=== PATIENT | female | born 1930 | race Caucasian/White ===

== ENCOUNTER 2017-02-27 12:34 | Emergency (ER) | payer MEDICARE ==
[2017-02-27 13:13] VITALS: BP 139/65
--- NOTE | 2017-02-27 14:33 | EDM.PDOC ---
ED HPI GENERAL MEDICAL PROBLEM - General Chief Complaint: Head Injury Stated Complaint: INJURY FACE/KNEES FEEL AT [place] Time Seen by Provider: 02/27/17 14:26 Source of Information: Reports: Patient History Limitations: Reports: No Limitations - History of Present Illness INITIAL COMMENTS - FREE TEXT/NARRATIVE: This 87 yo female patient was brought to the ED due to a ground level fall. The patient reports she was walking out of a restaurant and missed a step. The patient reports she fell directly on her face with pain to her forehead, upper nose and left knee. The patient does not think there was a loss of consciousness. Onset: Today Onset Date: 02/27/17 Duration: Constant Location: Reports: Head, Face, Lower Extremity, Left Quality: Reports: Ache, Dull Severity: Moderate Improves with: Reports: None Worsens with: Reports: None Context: Reports: Trauma (GLF) - Related Data Allergies Allergy/AdvReac Type Severity Reaction Status Date / Time promethazine Allergy Cannot Verified 11/08/14 06:07 Remember Sulfa (Sulfonamide Allergy Cannot Verified 11/08/14 06:07 Antibiotics) Remember Home Meds: Home Meds Carboxymethylcellulos/Glycerin [Refresh Optive] 1 drop EYEBOTH ASDIRECTED PRN [History] Cyanocobalamin (Vitamin B-12) [Cyanocobalamin Injection] 1,000 mcg INJECT .[id number] 11/01/14 [History] Levothyroxine Sodium [Synthroid] 1 tab PO DAILY 11/01/14 [History] Lutein/Min/Vit C/Vit E Acetate [Ocuvite Lutein] 1 cap PO DAILY 11/01/14 [History ] Metoprolol Tartrate [Lopressor] 1 tab PO BID 11/01/14 [History] Simvastatin [Simvastatin] 1 tab PO BEDTIME 11/01/14 [History] Triamterene/Hydrochlorothiazid [Dyazide 37.5-25] 1 tab PO DAILY 11/01/14 [ History] Past Medical History HEENT History: Reports: Macular Degeneration Cardiovascular History: Reports: High Cholesterol, Hypertension Musculoskeletal History: Reports: Arthritis Psychiatric History: Reports: None Endocrine/Metabolic History: Reports: Hypothyroidism - Past Surgical History HEENT Surgical History: Reports: Cataract Surgery GI Surgical History: Reports: Appendectomy Social & Family History - Family History Family Medical History: Noncontributory - Tobacco Use Smoking Status *Q: Never Smoker - Caffeine Use Caffeine Use: Reports: Coffee, Soda, Tea - Alcohol Use Days Per Week of Alcohol Use: 0 - Recreational Drug Use Recreational Drug Use: No ED ROS GENERAL - Review of Systems Review Of Systems: ROS reveals no pertinent complaints other than HPI. ED EXAM, HEAD INJURY - Physical Exam Exam: See Below Exam Limited By: No Limitations General Appearance: Alert, WD/WN, No Apparent Distress, Thin Head: Facial Abrasions (left forehead, upper nose) Nexus Criteria: No: Posterior, Midline Cervical Tenderness, Evidence of Intoxication, Altered Level of Consciousness, Focal Neurological Deficit, Painful Distraction Injuries Eyes: Bilateral Eye: EOMI, Normal Inspection, PERRL Ears: Normal External Exam, Normal Canal, Hearing Grossly Normal, Normal TMs Nose: Normal Mucousa, No Blood, Other (abrasion to upper nose from glasses) Throat/Mouth: Normal Inspection, Normal Lips, Normal Teeth, Normal Gums, Normal Oropharynx, Normal Voice, No Airway Compromise Neck: Non-Tender, Full Range of Motion, Normal Alignment, Normal Inspection Respiratory: No Respiratory Distress, Lungs Clear, Normal Breath Sounds, No Accessory Muscle Use, Chest Non-Tender Cardiovascular: Normal Peripheral Pulses, Regular Rate, Rhythm, No Edema, No Gallop, No JVD, No Murmur, No Rub GI/Abdominal Exam: Normal Bowel Sounds, Soft, Non-Tender, No Organomegaly, No Distention, No Abnormal Bruit, No Mass (Female) Exam: Deferred Rectal (Female) Exam: Deferred Back Exam: Full Range of Motion, Normal Inspection, NT Extremities: Leg Pain (left anteriorn knee pain) 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 As Tested, No Motor/Sensory Deficits, Alert, Normal Mood/Affect, Oriented x 3 Skin: Normal Color, Warm/Dry - [place] Coma Score Best Eye Response (Rachel): (4) Open Spontaneously Best Verbal Response (Rachel): (5) Oriented Best Motor Response (Rachel): (6) Obeys Commands Rachel Total: 15 Course - Vital Signs Last Recorded V/S: Last Vital Signs Temp 36.6 C 02/27/17 13:12 Pulse 64 02/27/17 13:12 Resp 14 02/27/17 13:12 BP 139/65 02/27/17 13:12 Pulse Ox 98 02/27/17 13:12 - Orders/Labs/Meds Orders: Active Orders 24 hr Category Date Time Status Knee 3V Lt [CR] Urgent Exams 02/27/17 14:30 Taken Max Facial Sinus wo Cont [CT] Urgent Exams 02/27/17 14:30 Taken Departure - Departure Time of Disposition: 15:28 Disposition: Home, Self-Care 01 Condition: Fair Clinical Impression: Abrasion, nose w/o infection Abrasion of forehead Qualifiers: Encounter type: initial encounter Qualified Code(s): S00.81XA - Abrasion of other part of head, initial encounter Contusion of left knee Qualifiers: Encounter type: initial encounter Qualified Code(s): S80.02XA - Contusion of left knee, initial encounter - Discharge Information Instructions: Facial or Scalp Contusion, [id number], Contusion, [id number] Forms: ED Department Discharge Care Plan Goals: The patient and family were advised of the examination, x-ray and CT results during the visit. The patient was encouraged to rest and ice the affected areas. If the patient has any additional symptoms or concerns, the patient should follow-up with her primary care facility or return to the emergency department. - My Orders Last 24 Hours: My Active Orders 02/27/17 14:30 Knee 3V Lt [CR] Urgent Max Facial Sinus wo Cont [CT] Urgent - Assessment/Plan Last 24 Hours: My Active Orders 02/27/17 14:30 Knee 3V Lt [CR] Urgent Max Facial Sinus wo Cont [CT] Urgent
== END 2017-02-27 15:48 | disposition home or self-care (01) ==
LOC: DL.ED 12:34
DX: S80.02XA Contusion of left knee, initial encounter (principal); S00.81XA Abrasion of other part of head, initial encounter; S00.31XA Abrasion of nose, initial encounter; I10 Essential (primary) hypertension; E78.00 Pure hypercholesterolemia, unspecified; M19.90 Unspecified osteoarthritis, unspecified site; E03.9 Hypothyroidism, unspecified; Z79.899 Other long term (current) drug therapy; Z88.2 Allergy status to sulfonamides; Z88.8 Allergy status to other drugs, medicaments and biological substances; Z98.49 Cataract extraction status, unspecified eye; Z90.49 Acquired absence of other specified parts of digestive tract; W01.0XXA Fall on same level from slipping, tripping and stumbling without subsequent striking against object, initial encounter; Y92.511 Restaurant or cafe as the place of occurrence of the external cause
CPT/HCPCS: 70486; 73562-LT; 99284

== ENCOUNTER 2018-04-04 11:28 | Emergency (ER) | payer MEDICARE ==
[2018-04-04 11:34] VITALS: BP 158/55
--- NOTE | 2018-04-04 12:04 | EDM.PDOC ---
Scribed by Saray Mitchell 04/04/18 1200 for Alexandr Raygoza MD ED HPI GENERAL MEDICAL PROBLEM - General Chief Complaint: Lower Extremity Injury/Pain Stated Complaint: [id number] HURT LEFT LEG FELL LAST WEEKEND AT HOME Time Seen by Provider: 04/04/18 11:43 Source of Information: Reports: Patient, Family, RN, RN Notes Reviewed History Limitations: Reports: No Limitations - History of Present Illness INITIAL COMMENTS - FREE TEXT/NARRATIVE: Pt presented to ER from home by POV with pt's granddaughter very worried because she found out the pt fell at home 8 days ago. Pt states that she has a tender bruise on the left thigh, but has been walking and taking care of herself "just fine" since the fall. Pt states that she was on the lowest rung of a step ladder in her basement cleaning the windows, and she tripped stepping off the ladder to the floor. She hit the left thigh on something but isn't sure what. She admits to bumping her head on the floor, but denies LOC, neck pain, N/ V, or drowsiness. She denies any other injury. She has not sought medical evaluation of her injuries prior to now. 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 Treatments Left Leg Pain Score (Numeric/FACES): 7 - Related Data Allergies Allergy/AdvReac Type Severity Reaction Status Date / Time promethazine Allergy Cannot Verified 04/04/18 11:34 Remember Sulfa (Sulfonamide Allergy Cannot Verified 04/04/18 11:34 Antibiotics) Remember Home Meds: Home Meds Carboxymethylcellulos/Glycerin [Refresh Optive] 1 drop EYEBOTH ASDIRECTED PRN [History] Cyanocobalamin (Vitamin B-12) [Cyanocobalamin Injection] 1,000 mcg INJECT .[id number] 11/01/14 [History] Levothyroxine Sodium [Synthroid] 1 tab PO DAILY 11/01/14 [History] Lutein/Min/Vit C/Vit E Acetate [Ocuvite Lutein] 1 cap PO DAILY 11/01/14 [History ] Metoprolol Tartrate [Lopressor] 1 tab PO BID 11/01/14 [History] Simvastatin 1 tab PO BEDTIME 11/01/14 [History] Triamterene/Hydrochlorothiazid [Dyazide 37.5-25] 1 tab PO DAILY 11/01/14 [ History] Aspirin [Ecotrin] 81 mg PO DAILY 04/04/18 [History] Donepezil HCl 5 mg PO ASDIRECTED 04/04/18 [History] Past Medical History HEENT History: Reports: Macular Degeneration Cardiovascular History: Reports: High Cholesterol, Hypertension Musculoskeletal History: Reports: Arthritis Neurological History: Reports: Other (See Below) Other Neuro History: forgetfulness Psychiatric History: Reports: None Endocrine/Metabolic History: Reports: Hypothyroidism Hematologic History: Reports: B12 Deficiency - Past Surgical History HEENT Surgical History: Reports: Cataract Surgery GI Surgical History: Reports: Appendectomy Social & Family History - Family History Family Medical History: Noncontributory - Tobacco Use Smoking Status *Q: Never Smoker Second Hand Smoke Exposure: No - Caffeine Use Caffeine Use: Reports: Coffee, Soda, Tea - Recreational Drug Use Recreational Drug Use: No - Living Situation & Occupation Living situation: Reports: , Alone Occupation: Retired Review of Systems - Review of Systems Review Of Systems: ROS reveals no pertinent complaints other than HPI. ED EXAM, GENERAL - Physical Exam Exam: See Below Exam Limited By: No Limitations General Appearance: Alert, WD/WN, No Apparent Distress Eye Exam: Bilateral Eye: EOMI, Normal Inspection, PERRL Ears: Normal External Exam, Normal Canal, Hearing Grossly Normal, Normal TMs Nose: Normal Inspection, Normal Mucosa, No Blood Throat/Mouth: Normal Inspection, Normal Lips, Normal Teeth, Normal Gums, Normal Oropharynx, Normal Voice, No Airway Compromise Head: Atraumatic, Normocephalic Neck: Normal Inspection, Supple, Non-Tender, Full Range of Motion Respiratory/Chest: No Respiratory Distress, Lungs Clear, Normal Breath Sounds, No Accessory Muscle Use, Chest Non-Tender Cardiovascular: Normal Peripheral Pulses, Regular Rate, Rhythm, No Edema GI/Abdominal: Normal Bowel Sounds, Soft, Non-Tender, No Distention (Female) Exam: Deferred Rectal (Female) Exam: Deferred Back Exam: Normal Inspection, Full Range of Motion. No: CVA Tenderness (L), CVA Tenderness (R), Vertebral Tenderness Extremities: Normal Range of Motion, No Pedal Edema, Normal Capillary Refill, Leg Pain (contusion left lateral knee, Hematoma left lateral thigh, skin intact) . No: Joint Swelling, Arm Pain, Bre's Sign Neurological: Alert, Oriented, CN II-XII Intact, Normal Cognition, Normal Gait, No Motor/Sensory Deficits Psychiatric: Normal Affect, Normal Mood Skin Exam: Warm, Dry, Intact Course - Vital Signs Last Recorded V/S: Last Vital Signs Temp 36.4 C 04/04/18 11:30 Pulse 66 04/04/18 11:30 Resp 18 04/04/18 11:30 BP 158/55 H 04/04/18 11:30 Pulse Ox 98 04/04/18 11:30 - Re-Assessments/Exams Free Text/Narrative Re-Assessment/Exam: Pt with minor injury that occurred 8 days ago. Pt denies any injury limiting her mobility or ability to care for herself. Pt states that her family just found out about the fall and insisted that she come to the ER for evaluation. I find no indication for a diagnostic work up or radiological imaging at this time. Departure - Departure Time of Disposition: 11:58 Disposition: Home, Self-Care 01 Condition: Good Clinical Impression: Traumatic hematoma of left thigh Qualifiers: Encounter type: initial encounter Qualified Code(s): S70.12XA - Contusion of left thigh, initial encounter Concussion without loss of consciousness Qualifiers: Encounter type: initial encounter Qualified Code(s): S06.0X0A - Concussion without loss of consciousness, initial encounter Fall as cause of accidental injury at home as place of occurrence Qualifiers: Encounter type: initial encounter Qualified Code(s): W19.XXXA - Unspecified fall, initial encounter; Y92.009 - Unspecified place in unspecified non- institutional (private) residence as the place of occurrence of the external cause - Discharge Information Instructions: Concussion, Adult, [id number]-[id number], Contusion, Mdyl-nv-[id number], Hematoma, [id number]-[id number] Forms: ED Department Discharge Additional Instructions: Use your cane. Stay off of ladders. Use a moist hot pack with Epsom Salts solution to the bruises and area(s) of pain as needed. Be careful not to burn yourself. Follow up in clinic if not improving as expected in 2 weeks. I have read and agree with the documentation that has been completed regarding this visit. By signing this record, I attest that the documentation was completed in my physical presence and is an accurate record of the encounter.
== END 2018-04-04 12:06 | disposition home or self-care (01) ==
LOC: DL.ED 11:28
DX: S06.0X0A Concussion without loss of consciousness, initial encounter (principal); S70.12XA Contusion of left thigh, initial encounter; E78.00 Pure hypercholesterolemia, unspecified; I10 Essential (primary) hypertension; Y92.009 Unspecified place in unspecified non-institutional (private) residence as the place of occurrence of the external cause; W11.XXXA Fall on and from ladder, initial encounter
CPT/HCPCS: 99283

== ENCOUNTER 2020-01-19 12:59 | Observation (INO) | payer MEDICARE ==
[2020-01-19] MEDS ORDERED: Ondansetron 4 MG Tab.DIS PO PRN (15:10)
[2020-01-19] MEDS ORDERED: Docusate Sodium 100 MG Cap PO PRN (15:10)
[2020-01-19] MEDS ORDERED: BETAMETHASONE DIPROPIONATE TOP PRN (15:18)
[2020-01-19] MEDS ORDERED: Non-Formulary Medication 1 Each (Carboxymethylcellulos/Glycerin [Refresh Optive] 1 DROP) EYEBOTH PRN (15:18)
--- NOTE | 2020-01-19 15:27 | PCM.HP ---
H&P History of Present Illness - General Date of Service: 01/19/20 Admit Problem/Dx: Admission Diagnosis/Problem Admission Diagnosis/Problem Weakness Source of Information: Patient - History of Present Illness Initial Comments - Free Text/Narative: This is an 89-year-old female with medical history of hypothyroidism, hypertension, coronary artery disease status post previous coronary stent placement. The patient also has osteoporosis and has been on prolia. She was noted to be hypocalcemic. Hasn't complained of generalized weakness, shortness of breath, generalized body malaise. Also has been having low back pain with occasional radiation to the lower extremities. Patient's family noted that she has been slower than herself in the past one to 2 weeks. Because of that she was taken to the clinic where she was diagnosed as having a urinary tract infection and placed on ciprofloxacin. That has not helped. She came back to the clinic today and the nurse practitioner requested admission to the hospital. - Related Data Allergies/Adverse Reactions: Allergies Allergy/AdvReac Type Severity Reaction Status Date / Time promethazine Allergy Cannot Verified 01/19/20 13:41 Remember Sulfa (Sulfonamide Allergy Cannot Verified 01/19/20 13:41 Antibiotics) Remember Home Medications: Home Meds Ascorbic Acid [Vitamin C] 500 mg PO DAILY 01/19/20 [History] Aspirin [Aspirin EC] 81 mg PO DAILY 01/19/20 [History] Betamethasone Dipropionate [Diprolene 0.05% Lotion] 1 applic TOP DAILY PRN 01/19/20 [History] Calcium Carbonate/Vitamin D3 [Oyster Shell 500-Vit D3 200 Tb] 2 tab PO BEDTIME 01/19/20 [History] Carboxymethylcellulos/Glycerin [Refresh Optive] 1 drop EYEBOTH ASDIRECTED PRN 01/19/20 [History] Ciprofloxacin [Ciprofloxacin HCl] 250 mg PO DAILY 01/19/20 [History] Cyanocobalamin (Vitamin B-12) [Cyanocobalamin Injection] 1,000 mcg IM .MONTHLY 01/19/20 [History] Donepezil [Aricept] 10 mg PO BEDTIME 01/19/20 [History] Levothyroxine 112 mcg PO DAILY 01/19/20 [History] Metoprolol Tartrate 25 mg PO DAILY 01/19/20 [History] Nitroglycerin [Nitrostat] 0.4 mg SL ASDIRECTED 01/19/20 [History] Potassium Chloride 20 meq PO BID 01/19/20 [History] Simvastatin [Zocor] 20 mg PO BEDTIME 01/19/20 [History] Triamterene/Hydrochlorothiazid [Triamterene-HCTZ 37.5-25 MG] 1 tab PO DAILY 01/19/20 [History] Vit C/E/Zn/Coppr/Lutein/Zeaxan [Preservision Areds 2 Softgel] 1 cap PO DAILY 01/19/20 [History] Past Medical History HEENT History: Reports: Macular Degeneration Cardiovascular History: Reports: Blood Clots/VTE/DVT, High Cholesterol, Hypertension, Stents Gastrointestinal History: Reports: None 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: Musculoskeletal History: Reports: Arthritis, Osteoporosis Neurological History: Reports: Alzheimers Disease Other Neuro History: forgetfulness Psychiatric History: Reports: Alzheimers Disease Endocrine/Metabolic History: Reports: Hypothyroidism Hematologic History: Reports: B12 Deficiency Other Oncologic History: skin cancer, unsure what type Other Dermatologic History: "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" - Past Surgical History HEENT Surgical History: Reports: Cataract Surgery GI Surgical History: Reports: Appendectomy Musculoskeletal Surgical History: Reports: None Social & Family History - Family History Family Medical History: Noncontributory - Tobacco Use Smoking Status *Q: Never Smoker Second Hand Smoke Exposure: No - Caffeine Use Caffeine Use: Reports: Coffee, Soda, Tea - Recreational Drug Use Recreational Drug Use: No - Living Situation & Occupation Living situation: Reports: , Alone Occupation: Retired H&P Review of Systems - Review of Systems: Review Of Systems: See Below General: Reports: Malaise, Weakness HEENT: Reports: No Symptoms Pulmonary: Reports: No Symptoms Cardiovascular: Reports: No Symptoms Gastrointestinal: Reports: No Symptoms Genitourinary: Reports: No Symptoms Musculoskeletal: Reports: No Symptoms Exam - Exam Exam: See Below - Vital Signs Vital Signs: Last Vital Signs Temp 36.5 C 01/19/20 13:32 Pulse 55 L 01/19/20 13:32 Resp 14 01/19/20 13:32 BP 125/59 L 01/19/20 13:32 Pulse Ox 100 01/19/20 13:32 Weight: 74.389 kg - Exam General: Alert, Oriented, Cooperative HEENT: Conjunctiva Clear Neck: Supple, Trachea Midline, 2 Lungs: Clear to Auscultation, Normal Respiratory Effort Cardiovascular: Regular Rate, Regular Rhythm GI/Abdominal Exam: Normal Bowel Sounds, Soft, Non-Tender, No Organomegaly, No Distention, No Abnormal Bruit, No Mass, Pelvis Stable Back Exam: Normal Inspection, Full Range of Motion, NT Extremities: Normal Inspection, Normal Range of Motion, Non-Tender, No Pedal Edema, Normal Capillary Refill Problem List Initiated/Reviewed/Updated: Yes Orders Last 24hrs: Active Orders 24 hr Category Date Time Status Admission Diagnosis [ADT] Stat ADT 01/19/20 13:26 Ordered Admission Status [Patient Status] [ADT] Routine ADT 01/19/20 13:26 Active Patient Status [ADT] Routine ADT 01/19/20 15:10 Ordered Cardiac Monitoring [RC] CONTINUOUS Care 01/19/20 15:12 Ordered Oxygen Therapy [RC] PRN Care 01/19/20 15:10 Ordered Up ad Sandra [RC] ASDIRECTED Care 01/19/20 15:10 Ordered VTE/DVT Education [RC] PER UNIT ROUTINE Care 01/19/20 15:10 Ordered Vital Signs [RC] Q4H Care 01/19/20 15:10 Ordered OT Evaluation and Treatment [CONS] Routine Cons 01/19/20 15:10 Ordered PT Evaluation and Treatment [CONS] Routine Cons 01/19/20 15:10 Ordered Regular Diet [DIET] Diet 01/19/20 Breakfast Ordered BASIC METABOLIC PANEL,BMP [CHEM] AM Lab 01/20/20 05:11 Ordered C-REACTIVE PROTEIN [REF] Routine Lab 01/19/20 15:10 Ordered CALCITRIOL(1,25 DI-OH VIT D) [REF] Routine Lab 01/19/20 15:10 Ordered HEPATIC FUNCTION PANEL,HFP [CHEM] Routine Lab 01/19/20 15:10 Ordered MAGNESIUM [CHEM] Routine Lab 01/19/20 15:10 Ordered PHOSPHORUS [CHEM] Routine Lab 01/19/20 15:10 Ordered PTH, INTACT [REF] Routine Lab 01/19/20 15:10 Ordered TROPONIN I [CHEM] Q6H Lab 01/19/20 15:10 Ordered TROPONIN I [CHEM] Q6H Lab 01/19/20 21:10 Ordered Betamethasone Dipropionate [Diprolene 0.05% Lotion] Med 01/19/20 15:18 Ordered 1 applic TOP DAILY PRN Calcium Gluconate Med 01/19/20 18:00 Ordered 1 gm IVPUSH Q6HR Carboxymethylcellulos/Glycerin [Refresh Optive] Med 01/19/20 15:18 Ordered 1 drop EYEBOTH ASDIRECTED PRN Docusate Sodium [Colace] Med 01/19/20 15:10 Ordered 100 mg PO BID PRN Donepezil [Aricept] Med 01/19/20 21:00 Ordered 10 mg PO BEDTIME HCTZ/Triamterene [Maxzide 25-37.5 MG] Med 01/20/20 09:00 Ordered 1 each PO DAILY Heparin Sodium Med 01/19/20 22:00 Ordered 5,000 units SUBCUT Q8HR Levothyroxine Med 01/20/20 09:00 Ordered 112 mcg PO DAILY Metoprolol Tartrate [Lopressor] Med 01/20/20 09:00 Ordered 25 mg PO DAILY Ondansetron [Zofran ODT] Med 01/19/20 15:10 Ordered 4 mg PO Q6H PRN Potassium Chloride [Potassium Chloride] Med 01/19/20 21:00 Ordered 20 meq PO BID Simvastatin [Zocor] Med 01/19/20 21:00 Ordered 20 mg PO BEDTIME Sodium Chloride 0.9% [Normal Saline] 1,000 ml Med 01/19/20 15:15 Ordered IV ASDIRECTED Vit C/E/Zn/Coppr/Lutein/Zeaxan [Preservision Areds 2 Med 01/20/20 09:00 Ordered Softgel] 1 cap PO DAILY Resuscitation Status Routine Resus Stat 01/19/20 15:10 Ordered Medication Orders Calcium Gluconate (Calcium Gluconate) 1 gm IVPUSH Q6HR [facility] Docusate Sodium (Colace) 100 mg PO BID PRN PRN Reason: Constipation Heparin Sodium (Porcine) (Heparin Sodium) 5,000 units SUBCUT Q8HR [facility] Sodium Chloride (Normal Saline) 1,000 mls @ 75 mls/hr IV ASDIRECTED [facility] Levothyroxine Sodium (Levothyroxine) 112 mcg PO DAILY [facility] Metoprolol Tartrate (Lopressor) 25 mg PO DAILY [facility] Non-Formulary Medication (Betamethasone Dipropionate [Diprolene 0.05% Lotion]) 1 applic TOP DAILY PRN PRN Reason: Itching Non-Formulary Medication (Carboxymethylcellulos/Glycerin [Refresh Optive]) 1 drop EYEBOTH ASDIRECTED PRN PRN Reason: Dry Eyes Non-Formulary Medication (Donepezil [Aricept]) 10 mg PO BEDTIME [facility] Non-Formulary Medication (Simvastatin [Zocor]) 20 mg PO BEDTIME [facility] Non-Formulary Medication (Vit C/E/Zn/Coppr/Lutein/Zeaxan [Preservision Areds 2 Softgel]) 1 cap PO DAILY [facility] Non-Formulary Medication (Potassium Chloride [Potassium Chloride]) 20 meq PO BID [facility] Ondansetron HCl (Zofran Odt) 4 mg PO Q6H PRN PRN Reason: nausea, able to take PO Triamterene/HCTZ (Maxzide 25-37.5 Mg) 1 each PO DAILY [facility] Assessment/Plan Comment:: #. Generalized weakness The cause of this is not obvious May be related to medications. Possible medications include antibiotic ciprofloxacin, prolia, diuretics #. Hypertension Multiple antihypertensives #. Hypocalcemia I am unable to obtain ionized calcium at this point. However serum calcium is lo w at 6.7. Can contribute to asthenia #. Coronary artery disease Denies having chest pain occasional shortness of breath Plan: Admit patient to medical floor Intravenous calcium gluconate every 6 hours Send sample for hepatic function test Send sample for troponin every 62 Send sample for vitamin D level Send sample serum magnesium, phosphorus patient would benefit from echocardiogram. This may have to be done as outpatient. Place patient on telemetry
[2020-01-19] MEDS: Sodium Chloride 0.9% 1,000 ML IV SCH (15:43)
[2020-01-19] MEDS ORDERED: Acetaminophen 325 MG Tab PO PRN (15:53)
[2020-01-19] MEDS: Calcium Gluconate 10% 1 GM/10 ML SDV IVPUSH SCH ×2 (17:52→23:54)
[2020-01-19] MEDS ORDERED: Simvastatin 10 MG Tab PO SCH (21:00)
[2020-01-19] MEDS ORDERED: Donepezil 10 MG Tab PO SCH (21:00)
[2020-01-19] MEDS: Potassium Chloride 10 MEQ Tab.ER PO SCH (21:11)
[2020-01-19] MEDS: Heparin Sodium 5,000 Units/ML Vial SUBCUT SCH (21:11)
[2020-01-19] MEDS: Acetaminophen 500 MG Tab PO SCH (21:11)
[2020-01-20] MEDS: Sodium Chloride 0.9% 1,000 ML IV SCH (05:22)
[2020-01-20] MEDS: Calcium Gluconate 10% 1 GM/10 ML SDV IVPUSH SCH (05:43)
[2020-01-20] MEDS: Heparin Sodium 5,000 Units/ML Vial SUBCUT SCH (05:43)
[2020-01-20 06:45] LABS: ANION GAP 13.6 mEq/L (7-13)
[2020-01-20 08:06] VITALS: BP 130/61; PULSE 55
[2020-01-20] MEDS: Potassium Chloride 10 MEQ Tab.ER PO SCH (08:40)
[2020-01-20] MEDS: Acetaminophen 500 MG Tab PO SCH (08:42)
[2020-01-20] MEDS ORDERED: Metoprolol Tartrate 25 MG Tab PO SCH (09:00)
[2020-01-20] MEDS ORDERED: Hydrochlorothiazide/Triamterene 25-37.5 Tab PO SCH (09:00)
[2020-01-20] MEDS ORDERED: Levothyroxine 112 MCG Tab PO SCH (09:00)
[2020-01-20] MEDS ORDERED: Lutein/Minerals/Vit A,C & E Tab PO SCH (09:00)
--- NOTE | 2020-01-20 09:58 | PCM.DCSUM1 ---
Discharge Summary - Hospital Course Free Text/Narrative:: This is an 89-year-old female with medical history of hypothyroidism, hypertension, coronary artery disease status post previous coronary stent placement. The patient also has osteoporosis and has been on prolia. She was noted to be hypocalcemic. Also complained of generalized weakness, shortness of breath, generalized body malaise. The patient got admitted to the hospital and was started on gentle hydration with intravenous normal saline. Laboratory stud ies were obtained and it showed significant hypoalbuminemia. Her appetite has not been great. We'll recommended improvement in nutrition. Patient is feeling better I will be discharged home. Agent will have patient echocardiogram and follow up with primary care provider. #. Generalized weakness #. Hypertension Multiple antihypertensives #. Hypocalcemia Has mild hypocalcemia. Low level accentuated by low serum albumin level Can contribute to asthenia #. Hypoalbuminemia Likely nutritional #. Coronary artery disease Denies having chest pain occasional shortness of breath Echo as outpatient - Discharge Data Discharge Date: 01/20/20 Discharge Disposition: Home, Self-Care 01 Condition: Good - Referral to Home Health Primary Care Physician: Sushila Mcconnell NP - Patient Summary/Data Consults: Consultations 01/19/20 15:10 OT Evaluation and Treatment [CONS] Routine PT Evaluation and Treatment [CONS] Routine - Patient Instructions Diet: Usual Diet as Tolerated Activity: As Tolerated Driving: May Drive Today Other/Special Instructions: BMP in one week. Transthoracic Echocardiogram as out patient - Discharge Plan Home Medications: Home Meds Ascorbic Acid [Vitamin C] 500 mg PO DAILY 01/19/20 [History] Aspirin [Aspirin EC] 81 mg PO DAILY 01/19/20 [History] Betamethasone Dipropionate [Diprolene 0.05% Lotion] 1 applic TOP DAILY PRN 01/19/20 [History] Calcium Carbonate/Vitamin D3 [Oyster Shell 500-Vit D3 200 Tb] 2 tab PO BEDTIME 01/19/20 [History] Carboxymethylcellulos/Glycerin [Refresh Optive] 1 drop EYEBOTH ASDIRECTED PRN 01/19/20 [History] Ciprofloxacin [Ciprofloxacin HCl] 250 mg PO DAILY 01/19/20 [History] Cyanocobalamin (Vitamin B-12) [Cyanocobalamin Injection] 1,000 mcg IM .MONTHLY 01/19/20 [History] Donepezil [Aricept] 10 mg PO BEDTIME 01/19/20 [History] Levothyroxine 112 mcg PO DAILY 01/19/20 [History] Metoprolol Tartrate 25 mg PO DAILY 01/19/20 [History] Nitroglycerin [Nitrostat] 0.4 mg SL ASDIRECTED 01/19/20 [History] Potassium Chloride 20 meq PO BID 01/19/20 [History] Simvastatin [Zocor] 20 mg PO BEDTIME 01/19/20 [History] Triamterene/Hydrochlorothiazid [Triamterene-HCTZ 37.5-25 MG] 1 tab PO DAILY 01/19/20 [History] Vit C/E/Zn/Coppr/Lutein/Zeaxan [Preservision Areds 2 Softgel] 1 cap PO DAILY 01/19/20 [History] Patient Handouts: High-Protein and High-Calorie Diet, Protein Content in Foods, Hypocalcemia, Adult, Calcium Content in Foods Referrals: Sushila Mcconnell NP [Primary Care Provider] - - Discharge Summary/Plan Comment DC Time >30 min.: No - Review of Systems General: Reports: No Symptoms HEENT: Reports: No Symptoms Pulmonary: Reports: No Symptoms Cardiovascular: Reports: No Symptoms Gastrointestinal: Reports: No Symptoms Musculoskeletal: Reports: No Symptoms - Patient Data Vitals - Most Recent: Last Vital Signs Temp 36.8 C 01/20/20 08:00 Pulse 55 L 01/20/20 08:41 Resp 18 01/20/20 08:00 BP 130/61 01/20/20 08:41 Pulse Ox 98 01/20/20 08:00 Weight - Most Recent: 74.389 kg I&O - Last 24 hours: Intake & Output 01/19/20 01/20/20 01/20/20 22:59 06:59 14:59 Intake Total 500 1000 Output Total 200 650 Balance 300 1000 -650 Lab Results - Last 24 hrs: Laboratory Results - last 24 hr 01/19/20 01/19/20 01/20/20 Range/Units 15:35 21:05 06:05 Sodium 139 (136-145) mmol/L Potassium 3.6 (3.5-5.1) mmol/L Chloride 103 (98-107) mmol/L Carbon Dioxide 26 (21-32) mmol/L Anion Gap 13.6 H (7-13) mEq/L BUN 23 H (7-18) mg/dL Creatinine 1.18 H (0.55-1.02) mg/dL Est Cr Clr Drug Dosing 27.26 mL/min Estimated GFR (MDRD) 43 Glucose 109 H (74-99) mg/dL Calcium 6.9 L (8.5-10.1) mg/dL Phosphorus 2.4 L (2.6-4.7) mg/dL Magnesium 2.7 H (1.8-2.4) mg/dL Total Bilirubin 0.3 (0.2-1.0) mg/dL Direct Bilirubin 0.1 (0.0-0.2) mg/dL Indirect Bilirubin 0.2 AST 20 (15-37) U/L ALT 22 (14-59) U/L Alkaline Phosphatase 88 (46-116) U/L Troponin I < 0.017 < 0.017 (0.000-0.056) ng/mL C-Reactive Protein 6.8 H (0.0-0.9) mg/dL Total Protein 6.9 (6.4-8.2) g/dL Albumin 2.9 L (3.4-5.0) g/dL Globulin 4.0 Albumin/Globulin Ratio 0.73 Med Orders - Current: Current Medications Acetaminophen (Tylenol) 650 mg PO Q6H PRN PRN Reason: Pain Last Admin: 01/19/20 17:51 Dose: 650 mg Documented by: Acetaminophen (Tylenol Extra Strength) 1,000 mg PO Q12H REPLACED BY [facility] Last Admin: 01/20/20 08:42 Dose: 1,000 mg Documented by: Docusate Sodium (Colace) 100 mg PO BID PRN PRN Reason: Constipation Donepezil HCl (Aricept) 10 mg PO BEDTIME REPLACED BY [facility] Last Admin: 01/19/20 21:10 Dose: 10 mg Documented by: Heparin Sodium (Porcine) (Heparin Sodium) 5,000 units SUBCUT Q8HR REPLACED BY [facility] Last Admin: 01/20/20 05:43 Dose: 5,000 units Documented by: Sodium Chloride (Normal Saline) 1,000 mls @ 75 mls/hr IV ASDIRECTED REPLACED BY [facility] Last Admin: 01/20/20 05:22 Dose: 75 mls/hr Documented by: Levothyroxine Sodium (Levothyroxine) 112 mcg PO DAILY REPLACED BY [facility] Last Admin: 01/20/20 08:41 Dose: 112 mcg Documented by: Metoprolol Tartrate (Lopressor) 25 mg PO DAILY REPLACED BY [facility] Last Admin: 01/20/20 08:41 Dose: 25 mg Documented by: Multivitamins/Minerals (I-Raj) 1 each PO DAILY REPLACED BY [facility] Last Admin: 01/20/20 08:40 Dose: 1 each Documented by: Non-Formulary Medication (Betamethasone Dipropionate [Diprolene 0.05% Lotion]) 1 applic TOP DAILY PRN PRN Reason: Itching Non-Formulary Medication (Carboxymethylcellulos/Glycerin [Refresh Optive]) 1 drop EYEBOTH ASDIRECTED PRN PRN Reason: Dry Eyes Ondansetron HCl (Zofran Odt) 4 mg PO Q6H PRN PRN Reason: nausea, able to take PO Potassium Chloride (Klor-Con 10) 20 meq PO BID REPLACED BY [facility] Last Admin: 01/20/20 08:40 Dose: 20 meq Documented by: Simvastatin (Zocor) 20 mg PO BEDTIME REPLACED BY [facility] Last Admin: 01/19/20 21:11 Dose: 20 mg Documented by: Triamterene/HCTZ (Maxzide 25-37.5 Mg) 1 each PO DAILY REPLACED BY [facility] Last Admin: 01/20/20 08:41 Dose: 1 each Documented by: Discontinued Medications Calcium Gluconate (Calcium Gluconate) 1 gm IVPUSH Q6HR REPLACED BY [facility] Stop: 01/20/20 06:01 Last Admin: 01/20/20 05:43 Dose: 1 gm Documented by: - Exam General: Reports: Alert, Oriented, Cooperative Neck: Reports: Supple Lungs: Reports: Clear to Auscultation, Normal Respiratory Effort Cardiovascular: Reports: Regular Rate, Regular Rhythm GI/Abdominal Exam: Normal Bowel Sounds, Soft, Non-Tender, No Organomegaly, No Distention, No Abnormal Bruit, No Mass, Pelvis Stable
== END 2020-01-20 11:35 | disposition home or self-care (01) ==
LOC: UNDOADMOB 13:26 → DL.MS 13:26
PROVIDERS: ADMIT Hospitalist; ATTEND Hospitalist
DX: R53.1 Weakness (principal); I10 Essential (primary) hypertension; E03.9 Hypothyroidism, unspecified; E83.51 Hypocalcemia; I25.10 Atherosclerotic heart disease of native coronary artery without angina pectoris; M81.0 Age-related osteoporosis without current pathological fracture; G30.9 Alzheimer's disease, unspecified; F02.80 Dementia in other diseases classified elsewhere, unspecified severity, without behavioral disturbance, psychotic disturbance, mood disturbance, and anxiety; E88.09 Other disorders of plasma-protein metabolism, not elsewhere classified; Z95.5 Presence of coronary angioplasty implant and graft; Z88.2 Allergy status to sulfonamides; Z88.8 Allergy status to other drugs, medicaments and biological substances; Z79.899 Other long term (current) drug therapy; Z79.890 Hormone replacement therapy
CPT/HCPCS: 36415; 80048; 80076; 82652; 83735; 83970; 84100; 84484; 86140; 96361; 96372; 96374; 96376; 97161-GP; 97165-GO; A9270-GY; G0378; G0379; J0610; J1644; J7030

== ENCOUNTER 2020-12-13 14:34 | Emergency (ER) | payer MEDICARE ==
[2020-12-13 14:46] VITALS: BP 105/42; PULSE 68
--- NOTE | 2020-12-13 14:58 | EDM.PDOC ---
ED HPI GENERAL MEDICAL PROBLEM - General Time Seen by Provider: 12/13/20 14:45 Source of Information: Reports: Patient History Limitations: Reports: No Limitations - History of Present Illness INITIAL COMMENTS - FREE TEXT/NARRATIVE: This 89 yo female patient was brought to the ED by [facility] due to chest pain. The patient reports her chest pain started last night and continued through this morning. The patient reports her chest pain went away after EMS gave her a dose of Aspirin. The patient reports she does have a history of a cardiac stent. The patient reports she does have some neck pain at this time. The patient reports her neck pain if from her sitting and reading books all the time. 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) Chest Pain Score (Numeric/FACES): 0 - Related Data Allergies Allergy/AdvReac Type Severity Reaction Status Date / Time promethazine Allergy Cannot Verified 01/19/20 13:41 Remember Sulfa (Sulfonamide Allergy Cannot Verified 01/19/20 13:41 Antibiotics) Remember Home Meds: Home Meds Ascorbic Acid [Vitamin C] 500 mg PO DAILY 01/19/20 [History] Aspirin [Aspirin EC] 81 mg PO DAILY 01/19/20 [History] Betamethasone Dipropionate [Diprolene 0.05% Lotion] 1 applic TOP DAILY PRN 01/19/20 [History] Calcium Carbonate/Vitamin D3 [Oyster Shell 500-Vit D3 200 Tb] 2 tab PO BEDTIME 01/19/20 [History] Carboxymethylcellulos/Glycerin [Refresh Optive] 1 drop EYEBOTH ASDIRECTED PRN 01/19/20 [History] Cyanocobalamin (Vitamin B-12) [Cyanocobalamin Injection] 1,000 mcg IM .MONTHLY 01/19/20 [History] Donepezil [Aricept] 10 mg PO BEDTIME 01/19/20 [History] Levothyroxine 112 mcg PO DAILY 01/19/20 [History] Nitroglycerin [Nitrostat] 0.4 mg SL ASDIRECTED 01/19/20 [History] Potassium Chloride 20 meq PO BID 01/19/20 [History] Simvastatin [Zocor] 20 mg PO BEDTIME 01/19/20 [History] Triamterene/Hydrochlorothiazid [Triamterene-HCTZ 37.5-25 MG] 1 tab PO DAILY 01/19/20 [History] Vit C/E/Zn/Coppr/Lutein/Zeaxan [Preservision Areds 2 Softgel] 1 cap PO DAILY 01/19/20 [History] Acetaminophen [Tylenol Extra Strength] 1,000 mg PO Q12H #60 tablet 01/20/20 [Rx] Past Medical History HEENT History: Reports: Macular Degeneration Cardiovascular History: Reports: Blood Clots/VTE/DVT, High Cholesterol, Hypertension, Stents Gastrointestinal History: Reports: None 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: Musculoskeletal History: Reports: Arthritis, Osteoporosis Neurological History: Reports: Alzheimers Disease Other Neuro History: forgetfulness Psychiatric History: Reports: Alzheimers Disease Endocrine/Metabolic History: Reports: Hypothyroidism Hematologic History: Reports: B12 Deficiency Other Oncologic History: skin cancer, unsure what type Other Dermatologic History: "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 ED EXAM, GENERAL - Physical Exam Exam: See Below Exam Limited By: No Limitations General Appearance: Alert, WD/WN, No Apparent Distress, Thin Eye Exam: Bilateral Eye: EOMI, Normal Inspection, PERRL Ears: Normal External Exam, Normal Canal, Hearing Grossly Normal, Normal TMs Nose: Normal Inspection, Normal Mucosa, No Blood Throat/Mouth: Normal Inspection, Normal Lips, Normal Teeth, Normal Gums, Normal Oropharynx, Normal Voice, No Airway Compromise Head: Atraumatic, Normocephalic Neck: Normal Inspection, Supple, Non-Tender, Full Range of Motion Respiratory/Chest: No Respiratory Distress, Lungs Clear, Normal Breath Sounds, No Accessory Muscle Use, Chest Non-Tender Cardiovascular: Normal Peripheral Pulses, Regular Rate, Rhythm, No Edema, No Gallop, No JVD, No Murmur, No Rub GI/Abdominal: Normal Bowel Sounds, Soft, Non-Tender, No Organomegaly, No Distention, No Abnormal Bruit, No Mass (Female) Exam: Deferred Rectal (Female) Exam: Deferred Back Exam: Normal Inspection, Full Range of Motion, NT Extremities: Normal Inspection, Normal Range of Motion, Non-Tender, Normal Capillary Refill, No Pedal Edema Neurological: Alert, Oriented, CN II-XII Intact, Normal Cognition, Normal Gait, Normal Reflexes, No Motor/Sensory Deficits Psychiatric: Normal Affect, Normal Mood Skin Exam: Warm, Dry, Intact, Normal Color, No Rash Lymphatic: No Adenopathy #1 Interpretation EKG Date: 12/13/20 Time: 14:35 Rhythm: NSR Rate (Beats/Min): 69 [place]: Normal P-Wave: Present QRS: Normal ST-T: Normal QT: Normal Comparison: No Change Course - Vital Signs Last Recorded V/S: Last Vital Signs Temp 36.4 C 12/13/20 14:39 Pulse 68 12/13/20 14:39 Resp 14 12/13/20 14:39 BP 105/42 L 12/13/20 14:39 Pulse Ox 100 12/13/20 14:39 - Orders/Labs/Meds Orders: Active Orders 24 hr Category Date Time Status EKG Documentation Completion [RC] STAT Care 12/13/20 14:26 Active CULTURE URINE [RM] Urgent Lab 12/13/20 15:34 Received Labs: Laboratory Tests 12/13/20 12/13/20 12/13/20 Range/Units 14:47 14:47 15:34 WBC 17.9 H (5.0-10.0) 10^3/uL RBC 4.05 L (4.2-5.4) 10^6/uL Hgb 9.8 L (12.0-16.0) g/dL Hct 32.3 L (37.0-47.0) % MCV 79.8 L (80-100) fL MCH 24.2 L (27.0-34.0) pg MCHC 30.3 L (33.0-35.0) g/dL Plt Count 235 (150-450) 10^3/uL Neut % (Auto) 86.7 H (42.2-75.2) % Lymph % (Auto) 7.4 L (20.5-50.1) % [place] % (Auto) 5.8 (2-8) % Eos % (Auto) 0.0 L (1.0-3.0) % Baso % (Auto) 0.1 (0.0-1.0) % Sodium 138 (136-145) mmol/L Potassium 3.1 L (3.5-5.1) mmol/L Chloride 100 (98-107) mmol/L Carbon Dioxide 28 (21-32) mmol/L Anion Gap 13.1 H (7-13) mEq/L BUN 25 H (7-18) mg/dL Creatinine 1.29 H (0.55-1.02) mg/dL Est Cr Clr Drug Dosing 26.03 mL/min Estimated GFR (MDRD) 39 BUN/Creatinine Ratio 19.4 (No establ ref range) Glucose 149 H (70-99) mg/dL Calcium 7.4 L (8.5-10.1) mg/dL Total Bilirubin 0.7 (0.2-1.0) mg/dL AST 23 (15-37) U/L ALT 29 (14-59) U/L Alkaline Phosphatase 60 (46-116) U/L Troponin I < 0.017 (0.000-0.056) ng/mL Total Protein 6.2 L (6.4-8.2) g/dL Albumin 3.0 L (3.4-5.0) g/dL Globulin 3.2 Albumin/Globulin Ratio 0.94 Urine Color Yellow (YELLOW) Urine Appearance Cloudy (CLEAR) Urine pH 7.0 (5.0-9.0) Ur Specific [place] 1.025 (1.005-1.030) Urine Protein 30 H (NEGATIVE) Urine Glucose (UA) Negative (NEGATIVE) Urine Ketones Negative (NEGATIVE) Urine Occult Blood Trace-intact H (NEGATIVE) Urine Nitrite Negative (NEGATIVE) Urine Bilirubin Negative (NEGATIVE) Urine Urobilinogen 0.2 (0.2-1.0) mg/dL Ur Leukocyte Esterase Moderate H (NEGATIVE) Urine RBC 5-10 H /HPF Urine WBC 50-75 H (0-5/HPF) /HPF Ur Epithelial Cells Occasional (NOT SEEN) /HPF Amorphous Sediment Moderate H (NOT SEEN) /HPF Urine Bacteria Few (0-FEW/HPF) /HPF Urine Mucus Rare (NOT SEEN) /LPF Departure - Departure Time of Disposition: 16:23 Disposition: Home, Self-Care 01 Condition: Fair Clinical Impression: Nonspecific chest pain UTI (urinary tract infection) Qualifiers: Urinary tract infection type: site unspecified Hematuria presence: with hematuria Qualified Code(s): N39.0 - Urinary tract infection, site not specified; R31.9 - Hematuria, unspecified Instructions: Nonspecific Chest Pain, Adult, [id number], Urinary Tract Infection, Adult, [id number] Referrals: Sushila Mcconnell NUTRITION CONSULTANT [Primary Care Provider] - Care Plan Goals: The patient was advised of the examination, lab, EKG and x-ray results during the visit. The patient was discharged with a script for Keflex (500 mg) #10 to take 1 by mouth 2 times per day for 5 days. If the patient has any additional symptoms or concerns, the patient should either return to the emergency department or visit her primary care facility. Sepsis Event Note (ED) - Evaluation Sepsis Screening Result: No Definite Risk - Focused Exam Vital Signs: Vital Signs Temp Pulse Resp BP Pulse Ox 12/13/20 14:39 36.4 C 68 14 105/42 L 100 - My Orders Last 24 Hours: My Active Orders 12/13/20 14:26 EKG Documentation Completion [RC] STAT 12/13/20 15:34 CULTURE URINE [RM] Urgent - Assessment/Plan Last 24 Hours: My Active Orders 12/13/20 14:26 EKG Documentation Completion [RC] STAT 12/13/20 15:34 CULTURE URINE [RM] Urgent
[2020-12-13 15:16] LABS: ANION GAP 13.1 mEq/L (7-13); CHLORIDE,CL 100 mmol/L (98-107); SODIUM,NA 138 mmol/L (136-145)
--- NOTE | 2020-12-13 15:32 | CR ---
PROCEDURE INFORMATION: Exam: XR Chest Exam date and time: 12/13/2020 2:57 PM Age: 89 years old Clinical indication: Other: Chest pain TECHNIQUE: Imaging protocol: XR of the chest. Views: 1 view. COMPARISON: CR CHEST PA/LAT 05/30/2010 12:27 PM FINDINGS: Telemetry leads overlie the chest. Lungs: Mild scarring minor fissure. Linear coarsening left lower lobe previously identified compatible with mild scarring. No consolidation. Pleural spaces: Unremarkable. No pleural effusion. No pneumothorax. Heart/Mediastinum: Unremarkable. No cardiomegaly. Bones/joints: Unremarkable. IMPRESSION: No acute findings.
== END 2020-12-13 16:28 | disposition home or self-care (01) ==
LOC: DL.ED 14:34
DX: R07.9 Chest pain, unspecified (principal); N39.0 Urinary tract infection, site not specified; E78.00 Pure hypercholesterolemia, unspecified; I10 Essential (primary) hypertension; Z95.5 Presence of coronary angioplasty implant and graft; E03.9 Hypothyroidism, unspecified; Z88.2 Allergy status to sulfonamides; Z88.8 Allergy status to other drugs, medicaments and biological substances; Z79.82 Long term (current) use of aspirin; Z79.899 Other long term (current) drug therapy
CPT/HCPCS: 36415; 71045; 80053; 81001; 84484; 85025; 87086; 93005; 93010; 99284; 99285-25

== ENCOUNTER 2021-06-26 13:08 | Inpatient (IN) | payer MEDICARE ==
[2021-06-26] MEDS ORDERED: Morphine 2 MG/ML SYRINGE IVPUSH ONE (13:48)
--- NOTE | 2021-06-26 14:04 | CR ---
PROCEDURE INFORMATION: Exam: XR Right Shoulder Exam date and time: 06/26/2021 1:27 PM Age: 89 years old Clinical indication: Pain; Shoulder; Right; Additional info: Right upper arm pain due to fall TECHNIQUE: Imaging protocol: XR Right shoulder. Views: 2 or more views. COMPARISON: No relevant prior studies available. FINDINGS: Bones/joints: Comminuted fracture of the proximal humerus with impaction noted. There is no evidence of joint malalignment or dislocation. Soft tissues: Soft tissue swelling is present. IMPRESSION: 1. Comminuted fracture of the proximal humerus with impaction noted. 2. No evidence of acute dislocation. 3. Soft tissue swelling is present.
--- NOTE | 2021-06-26 14:06 | EDM.PDOC ---
ED HPI GENERAL MEDICAL PROBLEM - General Chief Complaint: Upper Extremity Injury/Pain Stated Complaint: FALL Time Seen by Provider: 06/26/21 13:35 Source of Information: Reports: Patient History Limitations: Reports: No Limitations - History of Present Illness INITIAL COMMENTS - FREE TEXT/NARRATIVE: This 89 yo female patient was brought to the ED by family due to right shoulder pain. The patient reports she was getting out of a pick-up when she stepped on ice and fell on her right shoulder. The patient reports no additional pain. The patient states she did not hit her head and had no loss of consciousness before, during or after the fall. Onset: Today Duration: Minutes: Location: Reports: Upper Extremity, Right Quality: Reports: Ache Severity: Moderate Improves with: Reports: None Worsens with: Reports: None Context: Reports: Trauma (Ground level fall) Associated Symptoms: Reports: No Other Symptoms Right Arm Pain Score (Numeric/FACES): 10 - Related Data Allergies Allergy/AdvReac Type Severity Reaction Status Date / Time promethazine Allergy Cannot Verified 06/26/21 13:31 Remember Sulfa (Sulfonamide Allergy Cannot Verified 06/26/21 13:31 Antibiotics) Remember Home Meds: Home Meds Ascorbic Acid [Vitamin C] 500 mg PO DAILY 01/19/20 [History] Aspirin [Aspirin EC] 81 mg PO DAILY 01/19/20 [History] Betamethasone Dipropionate [Diprolene 0.05% Lotion] 1 applic TOP DAILY PRN 01/19/20 [History] Calcium Carbonate/Vitamin D3 [Oyster Shell 500-Vit D3 200 Tb] 2 tab PO BEDTIME 01/19/20 [History] Carboxymethylcellulos/Glycerin [Refresh Optive] 1 drop EYEBOTH ASDIRECTED PRN 01/19/20 [History] Cyanocobalamin (Vitamin B-12) [Cyanocobalamin Injection] 1,000 mcg IM .MONTHLY 01/19/20 [History] Donepezil [Aricept] 10 mg PO BEDTIME 01/19/20 [History] Levothyroxine 112 mcg PO DAILY 01/19/20 [History] Nitroglycerin [Nitrostat] 0.4 mg SL ASDIRECTED 01/19/20 [History] Potassium Chloride 20 meq PO BID 01/19/20 [History] Simvastatin [Zocor] 20 mg PO BEDTIME 01/19/20 [History] Triamterene/Hydrochlorothiazid [Triamterene-HCTZ 37.5-25 MG] 1 tab PO DAILY 01/19/20 [History] Vit C/E/Zn/Coppr/Lutein/Zeaxan [Preservision Areds 2 Softgel] 1 cap PO DAILY 01/19/20 [History] Acetaminophen [Tylenol Extra Strength] 1,000 mg PO Q12H #60 tablet 01/20/20 [Rx] HCTZ/Triamterene [Dyazide 25-37.5 MG] 2 cap PO DAILY 06/26/21 [History] Past Medical History HEENT History: Reports: Macular Degeneration Cardiovascular History: Reports: Blood Clots/VTE/DVT, High Cholesterol, Hypertension, Stents Gastrointestinal History: Reports: None 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: Musculoskeletal History: Reports: Arthritis, Osteoporosis Neurological History: Reports: Alzheimers Disease Other Neuro History: forgetfulness Psychiatric History: Reports: Alzheimers Disease Endocrine/Metabolic History: Reports: Hypothyroidism Hematologic History: Reports: B12 Deficiency Other Oncologic History: skin cancer, unsure what type Other Dermatologic History: "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" - Past Surgical History HEENT Surgical History: Reports: Cataract Surgery GI Surgical History: Reports: Appendectomy Musculoskeletal Surgical History: Reports: None Social & Family History - Family History Family Medical History: No Pertinent Family History - Tobacco Use Tobacco Use Status *Q: Never Tobacco User - Caffeine Use Caffeine Use: Reports: Coffee - Recreational Drug Use Recreational Drug Use: No - Living Situation & Occupation Living situation: Reports: , Alone Occupation: Retired Review of Systems - Review of Systems Review Of Systems: Comprehensive ROS is negative, except as noted in HPI. ED EXAM, GENERAL - Physical Exam Exam: See Below Exam Limited By: No Limitations General Appearance: Alert, WD/WN, Moderate Distress, Thin Eye Exam: Bilateral Eye: EOMI, Normal Inspection, PERRL Ears: Normal External Exam, Normal Canal, Hearing Grossly Normal, Normal TMs Nose: Normal Inspection, Normal Mucosa, No Blood Throat/Mouth: Normal Inspection, Normal Lips, Normal Teeth, Normal Gums, Normal Oropharynx, Normal Voice, No Airway Compromise Head: Atraumatic, Normocephalic Neck: Normal Inspection, Supple, Non-Tender, Full Range of Motion Respiratory/Chest: No Respiratory Distress, Lungs Clear, Normal Breath Sounds, No Accessory Muscle Use, Chest Non-Tender Cardiovascular: Normal Peripheral Pulses, Regular Rate, Rhythm, No Edema, No Gallop, No JVD, No Murmur, No Rub GI/Abdominal: Normal Bowel Sounds, Soft, Non-Tender, No Organomegaly, No Distention, No Abnormal Bruit, No Mass (Female) Exam: Deferred Rectal (Female) Exam: Deferred Back Exam: Normal Inspection, Full Range of Motion, NT Extremities: Arm Pain (Right shoulder with good radial pulse) Neurological: Alert, Oriented, CN II-XII Intact, Normal Cognition, Normal Gait, Normal Reflexes, No Motor/Sensory Deficits Psychiatric: Normal Affect, Normal Mood Skin Exam: Warm, Dry, Intact, Normal Color, No Rash Lymphatic: No Adenopathy Course - Vital Signs Last Recorded V/S: Last Vital Signs Temp 97.2 F 06/26/21 13:27 Pulse 72 06/26/21 13:27 Resp 14 06/26/21 13:27 BP 142/62 H 06/26/21 13:27 Pulse Ox 99 06/26/21 13:27 - Orders/Labs/Meds Orders: Active Orders 24 hr Category Date Time Status Admission Diagnosis [ADT] Urgent ADT 06/26/21 14:50 Ordered Admission Status [Patient Status] [ADT] Urgent ADT 06/26/21 14:50 Ordered COVID-19/FLU A+B [MOLEC] Urgent Lab 06/26/21 14:08 Ordered DME for Discharge [COMM] Urgent Oth 06/26/21 14:05 Ordered Meds: Medications Discontinued Medications Generic Name Dose Route Start Last Admin Trade Name Freq PRN Reason Stop Dose Admin Morphine Sulfate 2 mg 06/26/21 13:48 06/26/21 14:04 Morphine 2 Mg/Ml Syringe IVPUSH 06/26/21 13:49 2 mg ONETIME ONE Administration - Re-Assessments/Exams Free Text/Narrative Re-Assessment/Exam: 06/26/21 14:[address] De Anda ([facility]). Dr. De Anda advised to place the patient in a sling. The patient should follow-up with either himself or Dr. Summers with [facility] next week. Departure - Departure Time of Disposition: 14:53 Disposition: Refer to Observation Condition: Fair Clinical Impression: Humerus fracture Qualifiers: Encounter type: initial encounter Humerus Location: proximal Fracture type: closed Fracture morphology: other fracture Fracture alignment: nondisplaced Laterality: right Qualified Code(s): S42.294A - Other nondisplaced fracture of upper end of right humerus, initial encounter for closed fracture - Discharge Information *PRESCRIPTION DRUG MONITORING PROGRAM REVIEWED*: Not Applicable *COPY OF PRESCRIPTION DRUG MONITORING REPORT IN PATIENT LUKE: Not Applicable Care Plan Goals: The patient's history, examination, x-ray and consult results (with Dr. De Anda) were discussed with Dr. Tejeda. Dr. Tejeda accepted the patient for observation for pain management. Sepsis Event Note (ED) - Evaluation Sepsis Screening Result: No Definite Risk - Focused Exam Vital Signs: Vital Signs Temp Pulse Resp BP Pulse Ox 06/26/21 13:27 97.2 F 72 14 142/62 H 99 - My Orders Last 24 Hours: My Active Orders 06/26/21 14:05 DME for Discharge [COMM] Urgent 06/26/21 14:08 COVID-19/FLU A+B [MOLEC] Urgent 06/26/21 14:50 Admission Diagnosis [ADT] Urgent Admission Status [Patient Status] [ADT] Urgent - Assessment/Plan Last 24 Hours: My Active Orders 06/26/21 14:05 DME for Discharge [COMM] Urgent 06/26/21 14:08 COVID-19/FLU A+B [MOLEC] Urgent 06/26/21 14:50 Admission Diagnosis [ADT] Urgent Admission Status [Patient Status] [ADT] Urgent
[2021-06-26 14:56] LABS: CORONAVIRUS COVID-19 NAA NEGATIVE (NEGATIVE)
[2021-06-26] MEDS ORDERED: Temazepam 15 MG Cap PO PRN (16:16)
[2021-06-26] MEDS ORDERED: Docusate Sodium 100 MG Cap PO PRN (16:16)
[2021-06-26] MEDS ORDERED: Ondansetron 4 MG Tab.DIS PO PRN (16:16)
--- NOTE | 2021-06-26 16:26 | PCM.HP ---
H&P History of Present Illness - General Date of Service: 06/26/21 Admit Problem/Dx: Admission Diagnosis/Problem Admission Diagnosis/Problem Pain management Source of Information: Patient, Family - History of Present Illness Initial Comments - Free Text/Narative: 89 yo with h/o dementia, htn lives independently but son has to check on her multiple times per day as she was stepping out of a truck she slipped on ice, landed on her r. side. no head trauma, no loc went to eat with family later was developing pain in R. shoulder - came to ER noted r. humerus fx. ER provider consulted orthopedic MD at [facility] - conservative management was suggested with a sling pain is in r. shoulder, moderate when not moving, severe with movements no associated headache duration: since fall, type: sharp, non radiating Right Arm Pain Score (Numeric/FACES): 5 - Related Data Allergies/Adverse Reactions: Allergies Allergy/AdvReac Type Severity Reaction Status Date / Time promethazine Allergy Cannot Verified 06/26/21 13:31 Remember Sulfa (Sulfonamide Allergy Cannot Verified 06/26/21 13:31 Antibiotics) Remember Home Medications: Home Meds RX: Ascorbic Acid [Vitamin C] 500 mg PO DAILY 01/19/20 [History] RX: Aspirin [Aspirin EC] 81 mg PO DAILY 01/19/20 [History] RX: Betamethasone Dipropionate [Diprolene 0.05% Lotion] 1 applic TOP DAILY PRN 01/19/20 [History] RX: Calcium Carbonate/Vitamin D3 [Oyster Shell 500-Vit D3 200 Tb] 2 tab PO BEDTIME 01/19/20 [History] RX: Carboxymethylcellulos/Glycerin [Refresh Optive] 1 drop EYEBOTH ASDIRECTED PRN 01/19/20 [History] RX: Cyanocobalamin (Vitamin B-12) [Cyanocobalamin Injection] 1,000 mcg IM .MONTHLY 01/19/20 [History] RX: Donepezil [Aricept] 10 mg PO BEDTIME 01/19/20 [History] RX: Levothyroxine 112 mcg PO DAILY 01/19/20 [History] RX: Nitroglycerin [Nitrostat] 0.4 mg SL ASDIRECTED 01/19/20 [History] RX: Potassium Chloride 20 meq PO BID 01/19/20 [History] RX: Simvastatin [Zocor] 20 mg PO BEDTIME 01/19/20 [History] RX: Triamterene/Hydrochlorothiazid [Triamterene-HCTZ 37.5-25 MG] 1 tab PO DAILY 01/19/20 [History] RX: Vit C/E/Zn/Coppr/Lutein/Zeaxan [Preservision Areds 2 Softgel] 1 cap PO DAILY 01/19/20 [History] RX: Acetaminophen [Tylenol Extra Strength] 1,000 mg PO Q12H #60 tablet 01/20/20 [Rx] HCTZ/Triamterene [Dyazide 25-37.5 MG] 2 cap PO DAILY 06/26/21 [History] Past Medical History HEENT History: Reports: Macular Degeneration Cardiovascular History: Reports: Blood Clots/VTE/DVT, High Cholesterol, Hypertension, Stents 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: Musculoskeletal History: Reports: Arthritis, Osteoporosis Neurological History: Reports: Alzheimers Disease Other Neuro History: forgetfulness Psychiatric History: Reports: Alzheimers Disease Endocrine/Metabolic History: Reports: Hypothyroidism Hematologic History: Reports: B12 Deficiency Other Oncologic History: skin cancer, unsure what type Other Dermatologic History: "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" - Past Surgical History HEENT Surgical History: Reports: Cataract Surgery GI Surgical History: Reports: Appendectomy Musculoskeletal Surgical History: Reports: None Social & Family History - Family History Family Medical History: No Pertinent Family History - Tobacco Use Tobacco Use Status *Q: Never Tobacco User - Caffeine Use Caffeine Use: Reports: Coffee - Recreational Drug Use Recreational Drug Use: No - Living Situation & Occupation Living situation: Reports: , Alone Occupation: Retired H&P Review of Systems - Review of Systems: Review Of Systems: See Below General: Denies: Fever, Malaise, Weakness Pulmonary: Denies: Shortness of Breath Cardiovascular: Denies: Chest Pain, Edema Gastrointestinal: Denies: Abdominal Pain Psychiatric: Denies: Confusion, Anxiety Exam - Exam Exam: See Below - Vital Signs Vital Signs: Last Vital Signs Temp 97.3 F 06/26/21 16:02 Pulse 53 L 06/26/21 16:02 Resp 15 06/26/21 16:02 BP 147/57 H 06/26/21 16:02 Pulse Ox 100 06/26/21 16:02 Weight: 180 lb 6.4 oz - Exam General: Alert, Oriented Neck: Supple Lungs: Clear to Auscultation, Normal Respiratory Effort Cardiovascular: Regular Rate, Regular Rhythm Extremities: No Pedal Edema Neuro Extensive - Mental Status: Alert, Oriented x3, Normal Mood/Affect Psychiatric: Alert, Normal Affect, Normal Mood - Patient Data Lab Results Last 24 hrs: Laboratory Results - last 24 hr 06/26/21 Range/Units 14:08 Influenza Type A RNA Negative (NEGATIVE) Influenza Type B RNA Negative (NEGATIVE) SARS-CoV-2 RNA (KWAME) Negative (NEGATIVE) - Problem List (1) Dementia SNOMED Code(s): 55371731 ICD Code: F03.90 - UNSPECIFIED DEMENTIA WITHOUT BEHAVIORAL DISTURBANCE Status: Acute Current Visit: Yes (2) HTN (hypertension) SNOMED Code(s): 54509776 ICD Code: I10 - ESSENTIAL (PRIMARY) HYPERTENSION Status: Acute Current Visit: Yes (3) Nonspecific chest pain SNOMED Code(s): 94231789 ICD Code: R07.9 - CHEST PAIN, UNSPECIFIED Status: Acute Current Visit: No Problem List Initiated/Reviewed/Updated: Yes Orders Last 24hrs: Active Orders 24 hr Category Date Time Status Admission Diagnosis [ADT] Urgent ADT 06/26/21 14:50 Ordered Admission Status [Patient Status] [ADT] Urgent ADT 06/26/21 14:50 Active Oxygen Therapy [RC] PRN Care 06/26/21 16:16 Ordered Peripheral IV Care [RC] . DIRECTED Care 06/26/21 16:17 Ordered Up With Assistance [RC] ASDIRECTED Care 06/26/21 16:16 Ordered VTE/DVT Education [RC] PER UNIT ROUTINE Care 06/26/21 16:16 Ordered Vital Signs [RC] Q4H Care 06/26/21 16:16 Ordered OT Evaluation and Treatment [CONS] Routine Cons 06/26/21 16:13 Ordered PT Evaluation and Treatment [CONS] Routine Cons 06/26/21 16:13 Ordered Regular Diet [DIET] Diet 06/26/21 Dinner Ordered BASIC METABOLIC PANEL,BMP [CHEM] AM Lab 06/27/21 05:15 Ordered CBC WITH AUTO DIFF [HEME] AM Lab 06/27/21 05:15 Ordered Acetaminophen [TylenoL] Med 06/26/21 21:00 Ordered 650 mg PO TID Ascorbic Acid [Vitamin C] Med 06/27/21 09:00 Ordered 500 mg PO DAILY Aspirin [Halfprin] Med 06/27/21 09:00 Ordered 81 mg PO DAILY Docusate Sodium [Colace] Med 06/26/21 16:16 Ordered 100 mg PO BID PRN Donepezil [Aricept] Med 06/26/21 21:00 Ordered 10 mg PO BEDTIME HCTZ/Triamterene [Dyazide 25-37.5 MG] Med 06/27/21 09:00 Ordered 2 cap PO DAILY Heparin Sodium Med 06/26/21 22:00 Ordered 5,000 units SUBCUT Q8HR Ibuprofen [Motrin] Med 06/26/21 16:12 Ordered 400 mg PO Q6H PRN Levothyroxine Med 06/27/21 09:00 Ordered 112 mcg PO DAILY Ondansetron [Zofran ODT] Med 06/26/21 16:16 Ordered 4 mg PO Q6H PRN Potassium Chloride [Potassium Chloride] Med 06/26/21 21:00 Ordered 20 meq PO BID Simvastatin [Zocor] Med 06/26/21 21:00 Ordered 20 mg PO BEDTIME Sodium Chloride 0.9% [Saline Flush] Med 06/26/21 16:16 Ordered 10 ml FLUSH ASDIRECTED PRN Temazepam [Restoril] Med 06/26/21 16:16 Ordered 15 mg PO BEDTIME PRN oxyCODONE Med 06/26/21 16:12 Ordered 5 mg PO Q6H PRN DME for Discharge [COMM] Urgent Oth 06/26/21 14:05 Ordered Peripheral IV Insertion Adult [OM.PC] Routine Oth 06/26/21 16:16 Ordered Saline Lock Insert [OM.PC] Routine Oth 06/26/21 16:16 Ordered Resuscitation Status Routine Resus Stat 06/26/21 16:16 Ordered Medication Orders Acetaminophen (Acetaminophen 325 Mg Tab) 650 mg PO TID BASIA Aspirin (Aspirin 81 Mg Tab.Ec) 81 mg PO DAILY BASIA Docusate Sodium (Docusate Sodium 100 Mg Cap) 100 mg PO BID PRN PRN Reason: Constipation Heparin Sodium (Porcine) (Heparin Sodium 5,000 Units/Ml Vial) 5,000 units SUBCUT Q8HR BASIA Ibuprofen (Ibuprofen 400 Mg Tab) 400 mg PO Q6H PRN PRN Reason: moderate pain Levothyroxine Sodium (Levothyroxine 112 Mcg Tab) 112 mcg PO DAILY BASIA Non-Formulary Medication (Ascorbic Acid [Vitamin C]) 500 mg PO DAILY BASIA Non-Formulary Medication (Donepezil [Aricept]) 10 mg PO BEDTIME BASIA Non-Formulary Medication (Potassium Chloride [Potassium Chloride]) 20 meq PO BID BASIA Non-Formulary Medication (Simvastatin [Zocor]) 20 mg PO BEDTIME BASIA Non-Formulary Medication (Hctz/Triamterene [Dyazide 25-37.5 Mg]) 2 cap PO DAILY BASIA Ondansetron HCl (Ondansetron 4 Mg Tab.Dis) 4 mg PO Q6H PRN PRN Reason: nausea, able to take PO Oxycodone HCl (Oxycodone 5 Mg Tab) 5 mg PO Q6H PRN PRN Reason: severe pain Assessment/Plan Comment:: 89 yo with h/o dementia, htn lives independently but son has to check on her multiple times per day as she was stepping out of a truck she slipped on ice, landed on her r. side. no head trauma, no loc went to eat with family later was developing pain in R. shoulder - came to ER noted r. humerus fx. ER provider consulted orthopedic MD at [facility] - conservative management was suggested with a sling r. humerus fx use a sling pain control: scheduled tylenol, prn motrin, oxycodone consult pt/ot for eval f/up with ortho as out pt htn treat with hctz/tmt check bmp in AM dementia try to minimize narcotics high risk for delirium cont donepezil discussed code status: would like DNR status
[2021-06-26] MEDS: oxyCODONE 5 MG Tab PO PRN (16:47)
[2021-06-26] MEDS: Potassium Chloride 10 MEQ Tab.ER PO SCH (19:43)
[2021-06-26] MEDS ORDERED: Simvastatin 10 MG Tab PO SCH (21:00)
[2021-06-26] MEDS: Acetaminophen 325 MG Tab PO SCH (21:33)
[2021-06-26] MEDS: Donepezil 10 MG Tab PO SCH (21:33)
[2021-06-26] MEDS ORDERED: Heparin Sodium 5,000 Units/ML Vial SUBCUT SCH (22:00)
[2021-06-27] MEDS: oxyCODONE 5 MG Tab PO PRN ×4 (00:39→21:06)
[2021-06-27] MEDS: Ibuprofen 400 MG Tab PO PRN ×2 (04:34→11:32)
[2021-06-27] MEDS: Levothyroxine 112 MCG Tab PO SCH (08:20)
[2021-06-27] MEDS: Aspirin 81 MG Tab.EC PO SCH (08:20)
[2021-06-27] MEDS: Potassium Chloride 10 MEQ Tab.ER PO SCH ×2 (08:22→18:16)
[2021-06-27] MEDS: Acetaminophen 325 MG Tab PO SCH ×3 (08:22→21:05)
[2021-06-27] MEDS: Heparin Sodium 5,000 Units/ML Vial SUBCUT SCH ×3 (08:25→21:05)
[2021-06-27] MEDS ORDERED: Hydrochlorothiazide/Triamterene 25-37.5 Tab PO SCH (09:00)
[2021-06-27] MEDS ORDERED: Ascorbic Acid 500 MG Tab PO SCH (09:00)
[2021-06-27] MEDS ORDERED: amLODIPine 5 MG Tab PO SCH (21:00)
[2021-06-27] MEDS: amLODIPine 5 MG Tab PO SCH (21:06)
[2021-06-27] MEDS: Donepezil 10 MG Tab PO SCH (21:06)
--- NOTE | 2021-06-27 22:35 | PCM.PN ---
- General Info Date of Service: 06/27/21 - Patient Data Vitals - Most Recent: Last Vital Signs Temp 98.9 F 06/27/21 20:00 Pulse 82 06/27/21 20:00 Resp 20 06/27/21 20:00 BP 114/51 L 06/27/21 21:06 Pulse Ox 99 06/27/21 20:00 Weight - Most Recent: 180 lb 6.4 oz I&O - Last 24 Hours: Intake & Output 06/27/21 06/27/21 06/27/21 06:59 14:59 22:59 Intake Total 820 350 Balance 820 350 Lab Results Last 24 Hours: Laboratory Results - last 24 hr 06/27/21 06/27/21 06/27/21 Range/Units 06:45 06:45 06:45 WBC 9.7 (5.0-10.0) 10^3/uL RBC 3.58 L (4.2-5.4) 10^6/uL Hgb 8.6 L (12.0-16.0) g/dL Hct 28.7 L (37.0-47.0) % MCV 80.2 (80-100) fL MCH 24.0 L (27.0-34.0) pg MCHC 30.0 L (33.0-35.0) g/dL Plt Count 255 (150-450) 10^3/uL Neut % (Auto) 67.3 (42.2-75.2) % Lymph % (Auto) 23.5 (20.5-50.1) % [place] % (Auto) 8.7 H (2-8) % Eos % (Auto) 0.3 L (1.0-3.0) % Baso % (Auto) 0.2 (0.0-1.0) % Sodium 137 (136-145) mmol/L Potassium 4.0 (3.5-5.1) mmol/L Chloride 103 (98-107) mmol/L Carbon Dioxide 28 (21-32) mmol/L Anion Gap 10.0 (7-13) mEq/L BUN 29 H (7-18) mg/dL Creatinine 1.21 H (0.55-1.02) mg/dL Est Cr Clr Drug Dosing 24.93 mL/min Estimated GFR (MDRD) 42 Glucose 109 H (70-99) mg/dL Calcium 8.6 (8.5-10.1) mg/dL Magnesium 1.8 (1.8-2.4) mg/dL Iron (50-170) ug/dL TIBC (250-450) ug/dL % Saturation (20.0-50.0) % Ferritin (8-252) mg/mL Vitamin B12 448 (193-986) pg/mL Folate 12.0 (8.6-58.9) ng/mL TSH, Ultra Sensitive 4.60 H (0.36-3.74) uIU/mL 06/27/21 Range/Units 06:45 WBC (5.0-10.0) 10^3/uL RBC (4.2-5.4) 10^6/uL Hgb (12.0-16.0) g/dL Hct (37.0-47.0) % MCV (80-100) fL MCH (27.0-34.0) pg MCHC (33.0-35.0) g/dL Plt Count (150-450) 10^3/uL Neut % (Auto) (42.2-75.2) % Lymph % (Auto) (20.5-50.1) % [place] % (Auto) (2-8) % Eos % (Auto) (1.0-3.0) % Baso % (Auto) (0.0-1.0) % Sodium (136-145) mmol/L Potassium (3.5-5.1) mmol/L Chloride (98-107) mmol/L Carbon Dioxide (21-32) mmol/L Anion Gap (7-13) mEq/L BUN (7-18) mg/dL Creatinine (0.55-1.02) mg/dL Est Cr Clr Drug Dosing mL/min Estimated GFR (MDRD) Glucose (70-99) mg/dL Calcium (8.5-10.1) mg/dL Magnesium (1.8-2.4) mg/dL Iron 41 L (50-170) ug/dL TIBC 426 (250-450) ug/dL % Saturation 9.6 L (20.0-50.0) % Ferritin 13 (8-252) mg/mL Vitamin B12 (193-986) pg/mL Folate (8.6-58.9) ng/mL TSH, Ultra Sensitive (0.36-3.74) uIU/mL Med Orders - Current: Current Medications Acetaminophen (Acetaminophen 325 Mg Tab) 650 mg PO TID [facility] Last Admin: 06/27/21 21:05 Dose: 650 mg Documented by: Amlodipine Besylate (Amlodipine 5 Mg Tab) 2.5 mg PO 2100 [facility] Last Admin: 06/27/21 21:06 Dose: 2.5 mg Documented by: Ascorbic Acid (Ascorbic Acid 500 Mg Tab) 500 mg PO DAILY [facility] Last Admin: 06/27/21 08:20 Dose: 500 mg Documented by: Aspirin (Aspirin 81 Mg Tab.Ec) 81 mg PO DAILY [facility] Last Admin: 06/27/21 08:20 Dose: 81 mg Documented by: Docusate Sodium (Docusate Sodium 100 Mg Cap) 100 mg PO BID PRN PRN Reason: Constipation Donepezil HCl (Donepezil 10 Mg Tab) 10 mg PO BEDTIME [facility] Last Admin: 06/27/21 21:06 Dose: 10 mg Documented by: Heparin Sodium (Porcine) (Heparin Sodium 5,000 Units/Ml Vial) 5,000 units SUBCUT Q8HR [facility] Last Admin: 06/27/21 21:05 Dose: 5,000 units Documented by: Levothyroxine Sodium (Levothyroxine 112 Mcg Tab) 112 mcg PO DAILY [facility] Last Admin: 06/27/21 08:20 Dose: 112 mcg Documented by: Ondansetron HCl (Ondansetron 4 Mg Tab.Dis) 4 mg PO Q6H PRN PRN Reason: nausea, able to take PO Oxycodone HCl (Oxycodone 5 Mg Tab) 5 mg PO Q6H PRN PRN Reason: severe pain Last Admin: 06/27/21 21:06 Dose: 5 mg Documented by: Potassium Chloride (Potassium Chloride 10 Meq Tab.Er) 20 meq PO BIDMEALS [facility] Last Admin: 06/27/21 18:16 Dose: 20 meq Documented by: Sodium Chloride (Sodium Chloride 0.9% 10 Ml Syringe) 10 ml FLUSH ASDIRECTED PRN PRN Reason: Keep Vein Open Temazepam (Temazepam 15 Mg Cap) 15 mg PO BEDTIME PRN PRN Reason: Sleep Discontinued Medications Amlodipine Besylate (Amlodipine 5 Mg Tab) 5 mg PO 2100 [facility] Ibuprofen (Ibuprofen 400 Mg Tab) 400 mg PO Q6H PRN PRN Reason: moderate pain Last Admin: 06/27/21 11:32 Dose: 400 mg Documented by: Morphine Sulfate (Morphine 2 Mg/Ml Syringe) 2 mg IVPUSH ONETIME ONE Stop: 06/26/21 13:49 Last Admin: 06/26/21 14:04 Dose: 2 mg Documented by: Simvastatin (Simvastatin 10 Mg Tab) 20 mg PO BEDTIME [facility] Last Admin: 06/26/21 21:33 Dose: 20 mg Documented by: Triamterene/Hydrochlorothiazide (Hydrochlorothiazide/Triamterene 25-37.5 Tab) 2 each PO DAILY [facility] Last Admin: 06/27/21 08:22 Dose: 2 each Documented by: Triamterene/Hydrochlorothiazide (Hydrochlorothiazide/Triamterene 25-37.5 Tab) 1 each PO DAILY [facility] - Patient Data Lab Results Last 24 hrs: Laboratory Results - last 24 hr 06/27/21 06/27/21 06/27/21 Range/Units 06:45 06:45 06:45 WBC 9.7 (5.0-10.0) 10^3/uL RBC 3.58 L (4.2-5.4) 10^6/uL Hgb 8.6 L (12.0-16.0) g/dL Hct 28.7 L (37.0-47.0) % MCV 80.2 (80-100) fL MCH 24.0 L (27.0-34.0) pg MCHC 30.0 L (33.0-35.0) g/dL Plt Count 255 (150-450) 10^3/uL Neut % (Auto) 67.3 (42.2-75.2) % Lymph % (Auto) 23.5 (20.5-50.1) % [place] % (Auto) 8.7 H (2-8) % Eos % (Auto) 0.3 L (1.0-3.0) % Baso % (Auto) 0.2 (0.0-1.0) % Sodium 137 (136-145) mmol/L Potassium 4.0 (3.5-5.1) mmol/L Chloride 103 (98-107) mmol/L Carbon Dioxide 28 (21-32) mmol/L Anion Gap 10.0 (7-13) mEq/L BUN 29 H (7-18) mg/dL Creatinine 1.21 H (0.55-1.02) mg/dL Est Cr Clr Drug Dosing 24.93 mL/min Estimated GFR (MDRD) 42 Glucose 109 H (70-99) mg/dL Calcium 8.6 (8.5-10.1) mg/dL Magnesium 1.8 (1.8-2.4) mg/dL Iron (50-170) ug/dL TIBC (250-450) ug/dL % Saturation (20.0-50.0) % Ferritin (8-252) mg/mL Vitamin B12 448 (193-986) pg/mL Folate 12.0 (8.6-58.9) ng/mL TSH, Ultra Sensitive 4.60 H (0.36-3.74) uIU/mL 06/27/21 Range/Units 06:45 WBC (5.0-10.0) 10^3/uL RBC (4.2-5.4) 10^6/uL Hgb (12.0-16.0) g/dL Hct (37.0-47.0) % MCV (80-100) fL MCH (27.0-34.0) pg MCHC (33.0-35.0) g/dL Plt Count (150-450) 10^3/uL Neut % (Auto) (42.2-75.2) % Lymph % (Auto) (20.5-50.1) % [place] % (Auto) (2-8) % Eos % (Auto) (1.0-3.0) % Baso % (Auto) (0.0-1.0) % Sodium (136-145) mmol/L Potassium (3.5-5.1) mmol/L Chloride (98-107) mmol/L Carbon Dioxide (21-32) mmol/L Anion Gap (7-13) mEq/L BUN (7-18) mg/dL Creatinine (0.55-1.02) mg/dL Est Cr Clr Drug Dosing mL/min Estimated GFR (MDRD) Glucose (70-99) mg/dL Calcium (8.5-10.1) mg/dL Magnesium (1.8-2.4) mg/dL Iron 41 L (50-170) ug/dL TIBC 426 (250-450) ug/dL % Saturation 9.6 L (20.0-50.0) % Ferritin 13 (8-252) mg/mL Vitamin B12 (193-986) pg/mL Folate (8.6-58.9) ng/mL TSH, Ultra Sensitive (0.36-3.74) uIU/mL Result Diagrams: 06/28/21 09:10 06/28/21 09:10 Sepsis Event Note - Evaluation Sepsis Screening Result: No Definite Risk - Focused Exam Vital Signs: Vital Signs Temp Pulse Resp BP BP Pulse Ox Pulse Ox 06/27/21 21:06 114/51 L 06/27/21 20:00 98.9 F 82 20 115/64 99 06/27/21 16:12 97 06/27/21 16:00 97.6 F 76 20 99/53 L 97 06/27/21 12:00 98.6 F 64 20 128/60 93 L - Problem List Review Problem List Initiated/Reviewed/Updated: No - My Orders Last 24 Hours: My Active Orders 06/27/21 06:45 SMEARS TO PATH (SLIDES ONLY) [REF] Routine WBC DIFFERENTIAL, MANUAL [REF] Routine 06/27/21 12:03 Telemetry Monitoring [Cardiac Monitoring] [RC] 08,20 06/27/21 16:15 OCCULT BLOOD SCREEN [OP] Routine 06/27/21 21:00 amLODIPine [Norvasc] 2.5 mg PO 2100 - Plan Plan:: HOSPITAL PROGRESS NOTE SUBJECTIVE: Pleasantly disoriented to place and time. Right arm pain on movement. A 4-point ROS of 7 systems otherwise negative for concerning findings. OBJECTIVE: Vitals viewed. Right arm in sling. Motor strength 5/5 in all other groups. A 4-point physical exam of 7 systems otherwise negative for concerning findings. I viewed lab and imaging results in chart. ASSESSMENT / PLAN: Iman was admitted on 06/26 for right arm pain after [id number] on ice witnessed by her son. Comminuted fracture of proximal humerus with impaction. ER provider discussed case with [facility]; sling placement and [facility] followup in 1 week was advised; this should be placed at discharge. Hypertension. I stopped HCTZ-triamterene after discussion of risk of dehydration and electrolyte imbalance from its use on 06/27 with her family. Amlodipine 2.5 [address] daily [address] its place. Anemia of iron deficiency. Remote h/o gastric bypass surgery; last upper and lower endoscopy (11/2014) showed unremarkable site of gastric bypass surgery as well as non-constricting Schatzki's ring and diverticulosis. Peripheral smear ordered. Polypharmacy. Stopped simvastatin after discussion of risks and benefits in elderly patients with dementia. CKD stage 3. Dementia without behavior disturbance. DVT px: heparin Code: DNR OT/PT following; might need temporary SNF placement.
[2021-06-28] MEDS ORDERED: Iron Sucrose Complex 100 MG/5 ML SDV IVPUSH ONE ×2 (02:52→12:30)
[2021-06-28] MEDS: Heparin Sodium 5,000 Units/ML Vial SUBCUT SCH ×3 (05:17→21:17)
[2021-06-28] MEDS: oxyCODONE 5 MG Tab PO PRN ×3 (05:31→22:56)
[2021-06-28] MEDS ORDERED: Hydrochlorothiazide/Triamterene 25-37.5 Tab PO SCH (09:00)
[2021-06-28] MEDS: Acetaminophen 325 MG Tab PO SCH ×3 (09:14→21:15)
[2021-06-28] MEDS: Levothyroxine 112 MCG Tab PO SCH (09:15)
[2021-06-28] MEDS: Aspirin 81 MG Tab.EC PO SCH (09:15)
[2021-06-28] MEDS: Polyethylene Glycol 3350 Powder 17 GM Packet PO SCH ×2 (09:16→21:11)
[2021-06-28] MEDS: Sodium Chloride 0.9% 10 ML Syringe FLUSH PRN (09:17)
--- NOTE | 2021-06-28 16:40 | PCM.PN ---
- General Info Date of Service: 06/28/21 - Patient Data Vitals - Most Recent: Last Vital Signs Temp 97.0 F 06/28/21 15:47 Pulse 65 06/28/21 15:47 Resp 18 06/28/21 15:47 BP 111/51 L 06/28/21 15:47 Pulse Ox 94 L 06/28/21 15:47 Weight - Most Recent: 180 lb 6.4 oz I&O - Last 24 Hours: Intake & Output 06/28/21 06/28/21 06/28/21 06:59 14:59 22:59 Intake Total 100 100 Balance 100 100 Lab Results Last 24 Hours: Laboratory Results - last 24 hr 06/27/21 06/27/21 06/28/21 Range/Units 06:45 06:45 09:10 WBC 9.3 (5.0-10.0) 10^3/uL RBC 3.92 L (4.2-5.4) 10^6/uL Hgb 9.6 L (12.0-16.0) g/dL Hct 31.9 L (37.0-47.0) % MCV 81.4 (80-100) fL MCH 24.5 L (27.0-34.0) pg MCHC 30.1 L (33.0-35.0) g/dL Plt Count 245 (150-450) 10^3/uL Neut % (Auto) 60.1 (42.2-75.2) % Lymph % (Auto) 30.4 (20.5-50.1) % [place] % (Auto) 7.5 (2-8) % Eos % (Auto) 1.7 (1.0-3.0) % Baso % (Auto) 0.3 (0.0-1.0) % Sodium (136-145) mmol/L Potassium (3.5-5.1) mmol/L Chloride (98-107) mmol/L Carbon Dioxide (21-32) mmol/L Anion Gap (7-13) mEq/L BUN (7-18) mg/dL Creatinine (0.55-1.02) mg/dL Est Cr Clr Drug Dosing mL/min Estimated GFR (MDRD) BUN/Creatinine Ratio (No establ ref range) Glucose (70-99) mg/dL Calcium (8.5-10.1) mg/dL Phosphorus (2.6-4.7) mg/dL Magnesium 1.8 (1.8-2.4) mg/dL Iron 41 L (50-170) ug/dL TIBC 426 (250-450) ug/dL % Saturation 9.6 L (20.0-50.0) % Ferritin 13 (8-252) mg/mL Albumin (3.4-5.0) g/dL Vitamin B12 448 (193-986) pg/mL Folate 12.0 (8.6-58.9) ng/mL TSH, Ultra Sensitive 4.60 H (0.36-3.74) uIU/mL 06/28/21 Range/Units 09:10 WBC (5.0-10.0) 10^3/uL RBC (4.2-5.4) 10^6/uL Hgb (12.0-16.0) g/dL Hct (37.0-47.0) % MCV (80-100) fL MCH (27.0-34.0) pg MCHC (33.0-35.0) g/dL Plt Count (150-450) 10^3/uL Neut % (Auto) (42.2-75.2) % Lymph % (Auto) (20.5-50.1) % [place] % (Auto) (2-8) % Eos % (Auto) (1.0-3.0) % Baso % (Auto) (0.0-1.0) % Sodium 137 (136-145) mmol/L Potassium 4.0 (3.5-5.1) mmol/L Chloride 102 (98-107) mmol/L Carbon Dioxide 28 (21-32) mmol/L Anion Gap 11.0 (7-13) mEq/L BUN 29 H (7-18) mg/dL Creatinine 1.39 H (0.55-1.02) mg/dL Est Cr Clr Drug Dosing 21.70 mL/min Estimated GFR (MDRD) 36 BUN/Creatinine Ratio 20.9 (No establ ref range) Glucose 133 H (70-99) mg/dL Calcium 9.0 (8.5-10.1) mg/dL Phosphorus 3.8 (2.6-4.7) mg/dL Magnesium (1.8-2.4) mg/dL Iron (50-170) ug/dL TIBC (250-450) ug/dL % Saturation (20.0-50.0) % Ferritin (8-252) mg/mL Albumin 3.2 L (3.4-5.0) g/dL Vitamin B12 (193-986) pg/mL Folate (8.6-58.9) ng/mL TSH, Ultra Sensitive (0.36-3.74) uIU/mL [facility] Results Last 24 Hours: Microbiology 06/27/21 22:22 Stool Occult Blood (GRADY) - Final Stool / Feces NEGATIVE OCCULT BLOOD REFERENCE RANGE: NEGATIVE Med Orders - Current: Current Medications Acetaminophen (Acetaminophen 325 Mg Tab) 650 mg PO TID [facility] Last Admin: 06/28/21 14:09 Dose: 650 mg Documented by: Amlodipine Besylate (Amlodipine 5 Mg Tab) 2.5 mg PO 2100 [facility] Last Admin: 06/27/21 21:06 Dose: 2.5 mg Documented by: Aspirin (Aspirin 81 Mg Tab.Ec) 81 mg PO DAILY [facility] Last Admin: 06/28/21 09:15 Dose: 81 mg Documented by: Donepezil HCl (Donepezil 10 Mg Tab) 10 mg PO BEDTIME [facility] Last Admin: 06/27/21 21:06 Dose: 10 mg Documented by: Heparin Sodium (Porcine) (Heparin Sodium 5,000 Units/Ml Vial) 5,000 units SUBCUT Q8HR [facility] Last Admin: 06/28/21 14:10 Dose: 5,000 units Documented by: Levothyroxine Sodium (Levothyroxine 112 Mcg Tab) 112 mcg PO DAILY [facility] Last Admin: 06/28/21 09:15 Dose: 112 mcg Documented by: Ondansetron HCl (Ondansetron 4 Mg Tab.Dis) 4 mg PO Q6H PRN PRN Reason: nausea, able to take PO Oxycodone HCl (Oxycodone 5 Mg Tab) 5 mg PO Q8H PRN PRN Reason: severe pain Last Admin: 06/28/21 14:08 Dose: 5 mg Documented by: Polyethylene Glycol (Polyethylene Glycol 3350 Powder 17 Gm Packet) 17 gm PO BID [facility] Last Admin: 06/28/21 09:16 Dose: 17 gm Documented by: Sodium Chloride (Sodium Chloride 0.9% 10 Ml Syringe) 10 ml FLUSH ASDIRECTED PRN PRN Reason: Keep Vein Open Last Admin: 06/28/21 09:17 Dose: 10 ml Documented by: Discontinued Medications Amlodipine Besylate (Amlodipine 5 Mg Tab) 5 mg PO 2100 [facility] Ascorbic Acid (Ascorbic Acid 500 Mg Tab) 500 mg PO DAILY [facility] Last Admin: 06/27/21 08:20 Dose: 500 mg Documented by: Docusate Sodium (Docusate Sodium 100 Mg Cap) 100 mg PO BID PRN PRN Reason: Constipation Ibuprofen (Ibuprofen 400 Mg Tab) 400 mg PO Q6H PRN PRN Reason: moderate pain Last Admin: 06/27/21 11:32 Dose: 400 mg Documented by: Iron Sucrose (Iron Sucrose Complex 100 Mg/5 Ml Sdv) 200 mg IVPUSH ONETIME ONE Stop: 06/28/21 02:53 Iron Sucrose (Iron Sucrose Complex 100 Mg/5 Ml Sdv) 200 mg IVPUSH ONETIME ONE Stop: 06/28/21 12:31 Last Admin: 06/28/21 15:09 Dose: 200 mg Documented by: Morphine Sulfate (Morphine 2 Mg/Ml Syringe) 2 mg IVPUSH ONETIME ONE Stop: 06/26/21 13:49 Last Admin: 06/26/21 14:04 Dose: 2 mg Documented by: Oxycodone HCl (Oxycodone 5 Mg Tab) 5 mg PO Q6H PRN PRN Reason: severe pain Last Admin: 06/27/21 21:06 Dose: 5 mg Documented by: Potassium Chloride (Potassium Chloride 10 Meq Tab.Er) 20 meq PO BIDMEALS [facility] Last Admin: 06/27/21 18:16 Dose: 20 meq Documented by: Simvastatin (Simvastatin 10 Mg Tab) 20 mg PO BEDTIME [facility] Last Admin: 06/26/21 21:33 Dose: 20 mg Documented by: Temazepam (Temazepam 15 Mg Cap) 15 mg PO BEDTIME PRN PRN Reason: Sleep Triamterene/Hydrochlorothiazide (Hydrochlorothiazide/Triamterene 25-37.5 Tab) 2 each PO DAILY [facility] Last Admin: 06/27/21 08:22 Dose: 2 each Documented by: Triamterene/Hydrochlorothiazide (Hydrochlorothiazide/Triamterene 25-37.5 Tab) 1 each PO DAILY [facility] - Patient Data Lab Results Last 24 hrs: Laboratory Results - last 24 hr 06/27/21 06/27/21 06/28/21 Range/Units 06:45 06:45 09:10 WBC 9.3 (5.0-10.0) 10^3/uL RBC 3.92 L (4.2-5.4) 10^6/uL Hgb 9.6 L (12.0-16.0) g/dL Hct 31.9 L (37.0-47.0) % MCV 81.4 (80-100) fL MCH 24.5 L (27.0-34.0) pg MCHC 30.1 L (33.0-35.0) g/dL Plt Count 245 (150-450) 10^3/uL Neut % (Auto) 60.1 (42.2-75.2) % Lymph % (Auto) 30.4 (20.5-50.1) % [place] % (Auto) 7.5 (2-8) % Eos % (Auto) 1.7 (1.0-3.0) % Baso % (Auto) 0.3 (0.0-1.0) % Sodium (136-145) mmol/L Potassium (3.5-5.1) mmol/L Chloride (98-107) mmol/L Carbon Dioxide (21-32) mmol/L Anion Gap (7-13) mEq/L BUN (7-18) mg/dL Creatinine (0.55-1.02) mg/dL Est Cr Clr Drug Dosing mL/min Estimated GFR (MDRD) BUN/Creatinine Ratio (No establ ref range) Glucose (70-99) mg/dL Calcium (8.5-10.1) mg/dL Phosphorus (2.6-4.7) mg/dL Magnesium 1.8 (1.8-2.4) mg/dL Iron 41 L (50-170) ug/dL TIBC 426 (250-450) ug/dL % Saturation 9.6 L (20.0-50.0) % Ferritin 13 (8-252) mg/mL Albumin (3.4-5.0) g/dL Vitamin B12 448 (193-986) pg/mL Folate 12.0 (8.6-58.9) ng/mL TSH, Ultra Sensitive 4.60 H (0.36-3.74) uIU/mL 06/28/21 Range/Units 09:10 WBC (5.0-10.0) 10^3/uL RBC (4.2-5.4) 10^6/uL Hgb (12.0-16.0) g/dL Hct (37.0-47.0) % MCV (80-100) fL MCH (27.0-34.0) pg MCHC (33.0-35.0) g/dL Plt Count (150-450) 10^3/uL Neut % (Auto) (42.2-75.2) % Lymph % (Auto) (20.5-50.1) % [place] % (Auto) (2-8) % Eos % (Auto) (1.0-3.0) % Baso % (Auto) (0.0-1.0) % Sodium 137 (136-145) mmol/L Potassium 4.0 (3.5-5.1) mmol/L Chloride 102 (98-107) mmol/L Carbon Dioxide 28 (21-32) mmol/L Anion Gap 11.0 (7-13) mEq/L BUN 29 H (7-18) mg/dL Creatinine 1.39 H (0.55-1.02) mg/dL Est Cr Clr Drug Dosing 21.70 mL/min Estimated GFR (MDRD) 36 BUN/Creatinine Ratio 20.9 (No establ ref range) Glucose 133 H (70-99) mg/dL Calcium 9.0 (8.5-10.1) mg/dL Phosphorus 3.8 (2.6-4.7) mg/dL Magnesium (1.8-2.4) mg/dL Iron (50-170) ug/dL TIBC (250-450) ug/dL % Saturation (20.0-50.0) % Ferritin (8-252) mg/mL Albumin 3.2 L (3.4-5.0) g/dL Vitamin B12 (193-986) pg/mL Folate (8.6-58.9) ng/mL TSH, Ultra Sensitive (0.36-3.74) uIU/mL Result Diagrams: 06/28/21 09:10 06/28/21 09:10 [facility]ady Results Last 24 hrs: Microbiology 06/27/21 22:22 Stool Occult Blood (GRADY) - Final Stool / Feces NEGATIVE OCCULT BLOOD REFERENCE RANGE: NEGATIVE Sepsis Event Note - Evaluation Sepsis Screening Result: No Definite Risk - Focused Exam Vital Signs: Vital Signs Temp Pulse Resp BP Pulse Ox 06/28/21 15:47 97.0 F 65 18 111/51 L 94 L 06/28/21 12:00 97.9 F 60 20 120/58 L 97 06/28/21 08:00 98.2 F 71 20 105/51 L 96 - Problem List Review Problem List Initiated/Reviewed/Updated: Yes - My Orders Last 24 Hours: My Active Orders 06/27/21 21:00 amLODIPine [Norvasc] 2.5 mg PO 2100 06/28/21 02:52 oxyCODONE 5 mg PO Q8H PRN 06/28/21 08:59 Patient Status [ADT] Routine 06/28/21 09:00 polyethylene glycoL 3350 [MiraLAX] 17 gm PO BID - Plan Plan:: HOSPITAL PROGRESS NOTE SUBJECTIVE: No major developments overnight. Right arm pain on movement. A 4- point ROS of 7 systems otherwise negative for concerning findings. OBJECTIVE: Vitals viewed. Right arm in sling. Motor strength 5/5 in all other groups. A 4-point physical exam of 7 systems otherwise negative for concerning findings. I viewed lab and imaging results in chart. ASSESSMENT / PLAN: Iman was admitted on 06/26 for right arm pain after [id number] on ice witnessed by her son. Comminuted fracture of proximal humerus with impaction. ER provider discussed case with [facility]; sling placement and [facility] followup in 1 week was advised; this should be placed at discharge. OT/PT following; might need temporary SNF placement. Hypertension. I stopped HCTZ-triamterene after discussion of risk of dehydration and electrolyte imbalance from its use on 06/27 with her family. Amlodipine 2.[address]. Anemia of iron deficiency. Remote h/o gastric bypass surgery; last upper and lower endoscopy (11/2014) showed unremarkable site of gastric bypass surgery as well as non-constricting Schatzki's ring and diverticulosis. Peripheral smear ordered. Venofer 200mg IV x1 given. Outpatient endoscopies via gastroenterology or bariatric surgery can be advised. I ordered home q-monthly vit b12 inj to be given on 06/28. Polypharmacy. Stopped simvastatin after discussion of risks and benefits in elderly patients with dementia. CKD stage 3. Dementia without behavior disturbance. DVT px: heparin Code: DNR OT/PT following; might need temporary SNF placement.
[2021-06-28] MEDS ORDERED: Cyanocobalamin (Vitamin B12) 1,000 MCG/ML SDV IM ONE (16:57)
[2021-06-28] MEDS: amLODIPine 5 MG Tab PO SCH (21:14)
[2021-06-28] MEDS: Donepezil 10 MG Tab PO SCH (21:15)
[2021-06-29] MEDS: Heparin Sodium 5,000 Units/ML Vial SUBCUT SCH ×3 (05:30→21:13)
[2021-06-29 07:36] LABS: ANION GAP 11.6 mEq/L (7-13)
[2021-06-29] MEDS: Aspirin 81 MG Tab.EC PO SCH (08:20)
[2021-06-29] MEDS: oxyCODONE 5 MG Tab PO PRN (08:22)
[2021-06-29] MEDS: Levothyroxine 112 MCG Tab PO SCH (08:23)
[2021-06-29] MEDS: Acetaminophen 325 MG Tab PO SCH ×3 (08:23→21:12)
[2021-06-29] MEDS: Polyethylene Glycol 3350 Powder 17 GM Packet PO SCH ×2 (08:24→21:07)
--- NOTE | 2021-06-29 13:41 | PCM.PN ---
- General Info Date of Service: 06/29/21 Admission Dx/Problem (Free Text): Admission Diagnosis/Problem Admission Diagnosis/Problem Pain management Subjective Update: doing much better. feels she is ready for discharge. she is amenable to short term stay in SNF vs swing bed to regain strength and mobility prior to re- evaluation and possible discharge home. Functional Status: Reports: Pain Controlled - Review of Systems General: Reports: No Symptoms HEENT: Reports: No Symptoms Pulmonary: Reports: No Symptoms Cardiovascular: Reports: No Symptoms Gastrointestinal: Reports: No Symptoms Genitourinary: Reports: No Symptoms Musculoskeletal: Reports: Arm Pain (well controlled at rest) Skin: Reports: No Symptoms Neurological: Reports: No Symptoms Psychiatric: Reports: No Symptoms - Patient Data Vitals - Most Recent: Last Vital Signs Temp 98.2 F 06/29/21 12:00 Pulse 68 06/29/21 12:00 Resp 16 06/29/21 12:00 BP 116/52 L 06/29/21 12:00 Pulse Ox 99 06/29/21 12:00 Weight - Most Recent: 180 lb 6.4 oz I&O - Last 24 Hours: Intake & Output 06/28/21 06/29/21 06/29/21 22:59 06:59 14:59 Intake Total 320 100 200 Balance 320 100 200 Lab Results Last 24 Hours: Laboratory Results - last 24 hr 06/29/21 06/29/21 Range/Units 05:20 05:20 Hgb 8.7 L (12.0-16.0) g/dL Sodium 139 (136-145) mmol/L Potassium 3.6 (3.5-5.1) mmol/L Chloride 102 (98-107) mmol/L Carbon Dioxide 29 (21-32) mmol/L Anion Gap 11.6 (7-13) mEq/L BUN 32 H (7-18) mg/dL Creatinine 1.20 H (0.55-1.02) mg/dL Est Cr Clr Drug Dosing 25.14 mL/min Estimated GFR (MDRD) 42 Glucose 114 H (70-99) mg/dL Calcium 8.8 (8.5-10.1) mg/dL Med Orders - Current: Current Medications Acetaminophen (Acetaminophen 325 Mg Tab) 650 mg PO TID [facility] Last Admin: 06/29/21 08:23 Dose: 650 mg Documented by: Amlodipine Besylate (Amlodipine 5 Mg Tab) 2.5 mg PO 2100 [facility] Last Admin: 06/28/21 21:14 Dose: 2.5 mg Documented by: Aspirin (Aspirin 81 Mg Tab.Ec) 81 mg PO DAILY [facility] Last Admin: 06/29/21 08:20 Dose: 81 mg Documented by: Donepezil HCl (Donepezil 10 Mg Tab) 10 mg PO BEDTIME [facility] Last Admin: 06/28/21 21:15 Dose: 10 mg Documented by: Heparin Sodium (Porcine) (Heparin Sodium 5,000 Units/Ml Vial) 5,000 units SUBCUT Q8HR [facility] Last Admin: 06/29/21 05:30 Dose: 5,000 units Documented by: Levothyroxine Sodium (Levothyroxine 112 Mcg Tab) 112 mcg PO DAILY [facility] Last Admin: 06/29/21 08:23 Dose: 112 mcg Documented by: Ondansetron HCl (Ondansetron 4 Mg Tab.Dis) 4 mg PO Q6H PRN PRN Reason: nausea, able to take PO Oxycodone HCl (Oxycodone 5 Mg Tab) 5 mg PO Q8H PRN PRN Reason: severe pain Last Admin: 06/29/21 08:22 Dose: 5 mg Documented by: Polyethylene Glycol (Polyethylene Glycol 3350 Powder 17 Gm Packet) 17 gm PO BID [facility] Last Admin: 06/29/21 08:24 Dose: 17 gm Documented by: Sodium Chloride (Sodium Chloride 0.9% 10 Ml Syringe) 10 ml FLUSH ASDIRECTED PRN PRN Reason: Keep Vein Open Last Admin: 06/28/21 09:17 Dose: 10 ml Documented by: Discontinued Medications Amlodipine Besylate (Amlodipine 5 Mg Tab) 5 mg PO 2100 [facility] Ascorbic Acid (Ascorbic Acid 500 Mg Tab) 500 mg PO DAILY [facility] Last Admin: 06/27/21 08:20 Dose: 500 mg Documented by: Cyanocobalamin (Cyanocobalamin (Vitamin B12) 1,000 Mcg/Ml Sd) 1,000 mcg IM ONETIME ONE Stop: 06/28/21 16:58 Last Admin: 06/28/21 18:13 Dose: 1,000 mcg Documented by: Docusate Sodium (Docusate Sodium 100 Mg Cap) 100 mg PO BID PRN PRN Reason: Constipation Ibuprofen (Ibuprofen 400 Mg Tab) 400 mg PO Q6H PRN PRN Reason: moderate pain Last Admin: 06/27/21 11:32 Dose: 400 mg Documented by: Iron Sucrose (Iron Sucrose Complex 100 Mg/5 Ml Sdv) 200 mg IVPUSH ONETIME ONE Stop: 06/28/21 02:53 Last Admin: 06/28/21 18:46 Dose: Not Given Documented by: Iron Sucrose (Iron Sucrose Complex 100 Mg/5 Ml Sdv) 200 mg IVPUSH ONETIME ONE Stop: 06/28/21 12:31 Last Admin: 06/28/21 15:09 Dose: 200 mg Documented by: Morphine Sulfate (Morphine 2 Mg/Ml Syringe) 2 mg IVPUSH ONETIME ONE Stop: 06/26/21 13:49 Last Admin: 06/26/21 14:04 Dose: 2 mg Documented by: Oxycodone HCl (Oxycodone 5 Mg Tab) 5 mg PO Q6H PRN PRN Reason: severe pain Last Admin: 06/27/21 21:06 Dose: 5 mg Documented by: Potassium Chloride (Potassium Chloride 10 Meq Tab.Er) 20 meq PO BIDMEALS [facility] Last Admin: 06/27/21 18:16 Dose: 20 meq Documented by: Simvastatin (Simvastatin 10 Mg Tab) 20 mg PO BEDTIME [facility] Last Admin: 06/26/21 21:33 Dose: 20 mg Documented by: Temazepam (Temazepam 15 Mg Cap) 15 mg PO BEDTIME PRN PRN Reason: Sleep Triamterene/Hydrochlorothiazide (Hydrochlorothiazide/Triamterene 25-37.5 Tab) 2 each PO DAILY [facility] Last Admin: 06/27/21 08:22 Dose: 2 each Documented by: Triamterene/Hydrochlorothiazide (Hydrochlorothiazide/Triamterene 25-37.5 Tab) 1 each PO DAILY [facility] - Exam Quality Assessment: DVT Prophylaxis. No: Supplemental Oxygen General: Alert, Oriented HEENT: EOMI Neck: Supple Lungs: Clear to Auscultation, Normal Respiratory Effort Cardiovascular: Regular Rate, Regular Rhythm, Murmurs GI/Abdominal Exam: Normal Bowel Sounds, Soft, Non-Tender (Female) Exam: Deferred Extremities: No Pedal Edema, Arm Pain (right arm. with movement or palpation), Limited Range of Motion (right arm secondary to sling and fracture) - Patient Data Lab Results Last 24 hrs: Laboratory Results - last 24 hr 06/29/21 06/29/21 Range/Units 05:20 05:20 Hgb 8.7 L (12.0-16.0) g/dL Sodium 139 (136-145) mmol/L Potassium 3.6 (3.5-5.1) mmol/L Chloride 102 (98-107) mmol/L Carbon Dioxide 29 (21-32) mmol/L Anion Gap 11.6 (7-13) mEq/L BUN 32 H (7-18) mg/dL Creatinine 1.20 H (0.55-1.02) mg/dL Est Cr Clr Drug Dosing 25.14 mL/min Estimated GFR (MDRD) 42 Glucose 114 H (70-99) mg/dL Calcium 8.8 (8.5-10.1) mg/dL Result Diagrams: 06/29/21 05:20 06/29/21 05:20 Sepsis Event Note - Evaluation Sepsis Screening Result: No Definite Risk - Focused Exam Vital Signs: Vital Signs Temp Pulse Resp BP Pulse Ox 06/29/21 12:00 98.2 F 68 16 116/52 L 99 06/29/21 08:00 97.4 F 82 20 118/50 L 95 - Problem List Review Problem List Initiated/Reviewed/Updated: Yes - Assessment Assessment:: Iman was admitted on 06/26 for right arm pain after [id number] on ice witnessed by her son. - Plan Plan:: ACTIVE PROBLEMS: acute likely blood loss anemia 2/2 recent fracture severe chronic anemia secondary to iron deficiency and CKD stage III as well as hx of gastric bypass: - last upper and lower endoscopy (11/2014) showed unremarkable site of gastric bypass surgery as well as non-constricting Schatzki's ring and diverticulosis. - no active bleeding noted - Ferritin 13, iron 41, sat % 9.6, TIBC 426 - venofer 200mg IV slow push on 06/28 - hgb 9.6 -> 8.7 Plan: - IV slow push venofer 200mg once today. poor oral absorption given hx of gastric bypass. - continue to trend hgb - refer back to PCP at discharge for further investigation - transfuse for hgb <7 without signs of bleeding or <8 with active bleeding. mechanical fall on ice at home, initial encounter acute Comminuted fracture of proximal humerus with impaction: - RUE EX: - Ortho at [facility] consulted: place sling and follow up as outpatient in one week. Plan: - acetaminophen for pain - sling in place 23/02 - refer to [facility] ortho for follow up in one week post discharge. benign essential HTN: - stop HCTZ-triamterene after discussion of risk of dehydration and electrolyte imbalance from its use on 06/27 with her family. - continue Amlodipine 2.[address] its [address]. chronic conditions: - Polypharmacy. Stopped simvastatin after discussion of risks and benefits in elderly patients with dementia. - CKD stage 3. 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 DVT px: SCDs Code: DNR OT/PT following; might need temporary SNF placement.
[2021-06-29] MEDS ORDERED: Iron Sucrose Complex 100 MG/5 ML SDV IVPUSH ONE (13:58)
[2021-06-29] MEDS: amLODIPine 5 MG Tab PO SCH (21:10)
[2021-06-29] MEDS: Sodium Chloride 0.9% 10 ML Syringe FLUSH PRN (21:10)
[2021-06-29] MEDS: Donepezil 10 MG Tab PO SCH (21:11)
[2021-06-30] MEDS: Heparin Sodium 5,000 Units/ML Vial SUBCUT SCH ×3 (05:59→21:40)
[2021-06-30] MEDS: Levothyroxine 112 MCG Tab PO SCH (08:14)
[2021-06-30] MEDS: Acetaminophen 325 MG Tab PO SCH ×3 (08:14→21:21)
[2021-06-30] MEDS: Polyethylene Glycol 3350 Powder 17 GM Packet PO SCH ×2 (08:15→21:18)
[2021-06-30] MEDS: oxyCODONE 5 MG Tab PO PRN (09:51)
--- NOTE | 2021-06-30 12:06 | PCM.PN ---
- General Info Date of Service: 06/30/21 Admission Dx/Problem (Free Text): Admission Diagnosis/Problem Admission Diagnosis/Problem Pain management Subjective Update: doing well today. pleasantly confused. no acute concerns. Functional Status: Reports: Pain Controlled - Review of Systems General: Reports: No Symptoms HEENT: Reports: No Symptoms Pulmonary: Reports: No Symptoms Cardiovascular: Reports: No Symptoms Gastrointestinal: Reports: No Symptoms Genitourinary: Reports: No Symptoms Musculoskeletal: Reports: No Symptoms Skin: Reports: No Symptoms Neurological: Reports: No Symptoms Psychiatric: Reports: No Symptoms - Patient Data Vitals - Most Recent: Last Vital Signs Temp 99.6 F 06/30/21 07:56 Pulse 64 06/30/21 07:56 Resp 20 06/30/21 07:56 BP 128/53 L 06/30/21 07:56 Pulse Ox 97 06/30/21 07:56 Weight - Most Recent: 180 lb 6.4 oz I&O - Last 24 Hours: Intake & Output 06/29/21 06/30/21 06/30/21 22:59 06:59 14:59 Intake Total 350 100 Balance 350 100 Med Orders - Current: Current Medications Acetaminophen (Acetaminophen 325 Mg Tab) 650 mg PO TID [facility] Last Admin: 06/30/21 08:14 Dose: 650 mg Documented by: Amlodipine Besylate (Amlodipine 5 Mg Tab) 2.5 mg PO 2100 [facility] Last Admin: 06/29/21 21:10 Dose: 2.5 mg Documented by: Donepezil HCl (Donepezil 10 Mg Tab) 10 mg PO BEDTIME [facility] Last Admin: 06/29/21 21:11 Dose: 10 mg Documented by: Heparin Sodium (Porcine) (Heparin Sodium 5,000 Units/Ml Vial) 5,000 units SUBCUT Q8HR [facility] Last Admin: 06/30/21 05:59 Dose: 5,000 units Documented by: Levothyroxine Sodium (Levothyroxine 112 Mcg Tab) 112 mcg PO DAILY [facility] Last Admin: 06/30/21 08:14 Dose: 112 mcg Documented by: Ondansetron HCl (Ondansetron 4 Mg Tab.Dis) 4 mg PO Q6H PRN PRN Reason: nausea, able to take PO Oxycodone HCl (Oxycodone 5 Mg Tab) 5 mg PO DAILY PRN PRN Reason: Pain (severe 7-10) Last Admin: 06/30/21 09:51 Dose: 5 mg Documented by: Polyethylene Glycol (Polyethylene Glycol 3350 Powder 17 Gm Packet) 17 gm PO BID [facility] Last Admin: 06/30/21 08:15 Dose: 17 gm Documented by: Sodium Chloride (Sodium Chloride 0.9% 10 Ml Syringe) 10 ml FLUSH ASDIRECTED PRN PRN Reason: Keep Vein Open Last Admin: 06/29/21 21:10 Dose: 10 ml Documented by: Discontinued Medications Amlodipine Besylate (Amlodipine 5 Mg Tab) 5 mg PO 2100 [facility] Ascorbic Acid (Ascorbic Acid 500 Mg Tab) 500 mg PO DAILY [facility] Last Admin: 06/27/21 08:20 Dose: 500 mg Documented by: Aspirin (Aspirin 81 Mg Tab.Ec) 81 mg PO DAILY [facility] Last Admin: 06/29/21 08:20 Dose: 81 mg Documented by: Cyanocobalamin (Cyanocobalamin (Vitamin B12) 1,000 Mcg/Ml Sdv) 1,000 mcg IM ONETIME ONE Stop: 06/28/21 16:58 Last Admin: 06/28/21 18:13 Dose: 1,000 mcg Documented by: Docusate Sodium (Docusate Sodium 100 Mg Cap) 100 mg PO BID PRN PRN Reason: Constipation Ibuprofen (Ibuprofen 400 Mg Tab) 400 mg PO Q6H PRN PRN Reason: moderate pain Last Admin: 06/27/21 11:32 Dose: 400 mg Documented by: Iron Sucrose (Iron Sucrose Complex 100 Mg/5 Ml Sdv) 200 mg IVPUSH ONETIME ONE Stop: 06/28/21 02:53 Last Admin: 06/28/21 18:46 Dose: Not Given Documented by: Iron Sucrose (Iron Sucrose Complex 100 Mg/5 Ml Sdv) 200 mg IVPUSH ONETIME ONE Stop: 06/28/21 12:31 Last Admin: 06/28/21 15:09 Dose: 200 mg Documented by: Iron Sucrose (Iron Sucrose Complex 100 Mg/5 Ml Sdv) 200 mg IVPUSH ONETIME ONE Stop: 06/29/21 13:59 Last Admin: 06/29/21 16:42 Dose: 200 mg Documented by: Morphine Sulfate (Morphine 2 Mg/Ml Syringe) 2 mg IVPUSH ONETIME ONE Stop: 06/26/21 13:49 Last Admin: 06/26/21 14:04 Dose: 2 mg Documented by: Oxycodone HCl (Oxycodone 5 Mg Tab) 5 mg PO Q6H PRN PRN Reason: severe pain Last Admin: 06/27/21 21:06 Dose: 5 mg Documented by: Oxycodone HCl (Oxycodone 5 Mg Tab) 5 mg PO Q8H PRN PRN Reason: severe pain Last Admin: 06/29/21 08:22 Dose: 5 mg Documented by: Potassium Chloride (Potassium Chloride 10 Meq Tab.Er) 20 meq PO BIDMEALS [facility] Last Admin: 06/27/21 18:16 Dose: 20 meq Documented by: Simvastatin (Simvastatin 10 Mg Tab) 20 mg PO BEDTIME [facility] Last Admin: 06/26/21 21:33 Dose: 20 mg Documented by: Temazepam (Temazepam 15 Mg Cap) 15 mg PO BEDTIME PRN PRN Reason: Sleep Triamterene/Hydrochlorothiazide (Hydrochlorothiazide/Triamterene 25-37.5 Tab) 2 each PO DAILY [facility] Last Admin: 06/27/21 08:22 Dose: 2 each Documented by: Triamterene/Hydrochlorothiazide (Hydrochlorothiazide/Triamterene 25-37.5 Tab) 1 each PO DAILY [facility] - Exam Quality Assessment: DVT Prophylaxis. No: Supplemental Oxygen, Urine Catheter, Skin Breakdown General: Alert, Oriented (to self and place), Cooperative, No Acute Distress HEENT: EOMI Neck: Supple, No JVD Lungs: Clear to Auscultation, Normal Respiratory Effort. No: Decreased Breath Sounds, Crackles, Rhonchi, Stridor, Wheezing Cardiovascular: Regular Rate, Regular Rhythm, Murmurs GI/Abdominal Exam: Soft, Non-Tender (Female) Exam: No: Normal External Exam (ROM in RUE limited by sling and p ain) Back Exam: Full Range of Motion Extremities: Normal Inspection, Normal Range of Motion, Non-Tender Skin: Warm, Dry, Intact Neurological: No New Focal Deficit Psy/Mental Status: Alert, Normal Affect, Normal Mood - Patient Data Result Diagrams: 06/29/21 05:20 06/29/21 05:20 Sepsis Event Note - Evaluation Sepsis Screening Result: No Definite Risk - Focused Exam Vital Signs: Vital Signs Temp Pulse Resp BP Pulse Ox 06/30/21 07:56 99.6 F 64 20 128/53 L 97 06/30/21 04:00 98.6 F 79 20 146/55 H 94 L - Problem List Review Problem List Initiated/Reviewed/Updated: Yes - My Orders Last 24 Hours: My Active Orders 06/29/21 17:54 oxyCODONE 5 mg PO DAILY PRN 07/01/21 05:11 BASIC METABOLIC PANEL,BMP [CHEM] AM CBC W/O DIFF,HEMOGRAM [HEME] AM - Assessment Assessment:: Iman was admitted on 06/26 for right arm pain after [id number] on ice witnessed by her son. - Plan Plan:: ACTIVE PROBLEMS: acute likely blood loss anemia 2/2 recent fracture severe chronic anemia secondary to iron deficiency and CKD stage III as well as hx of gastric bypass: - last upper and lower endoscopy (11/2014) showed unremarkable site of gastric bypass surgery as well as non-constricting Schatzki's ring and diverticulosis. - no active bleeding noted - Ferritin 13, iron 41, sat % 9.6, TIBC 426 - venofer 200mg IV slow push on 06/28 and 06/29 - hgb 9.6 -> 8.7 Plan: - check hgb today at 1600 and early am - IV venofer 200mg IV today. plan for 5 total doses. IV given poor absorption due to hx of gastric bypass - refer back to PCP at discharge for further investigation - transfuse for hgb <7 without signs of bleeding or <8 with active bleeding. mechanical fall on ice at home, initial encounter acute Comminuted fracture of proximal humerus with impaction: - Ortho at [facility] consulted: place sling and follow up as outpatient in one week. Plan: - acetaminophen for pain - sling in place 23/02 - refer to [facility] ortho for follow up in one week post discharge. benign essential HTN: - stop HCTZ-triamterene after discussion of risk of dehydration and electrolyte imbalance from its use on 06/27 with her family. - continue Amlodipine 2.[address]. chronic conditions: - Polypharmacy. Stopped simvastatin after discussion of risks and benefits in elderly patients with dementia. - CKD stage 3. 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 DVT px: SCDs Code: DNR OT/PT following; might need temporary SNF placement. MDM/interval Hx: - pt doing well today. will receive dose 3/5 of venofer for her severe iron deficiency anemia. pleasantly confused. no pain. no acute concerns. up to chair today.
[2021-06-30] MEDS ORDERED: Iron Sucrose Complex 100 MG/5 ML SDV IVPUSH ONE (12:08)
[2021-06-30] MEDS: Sodium Chloride 0.9% 10 ML Syringe FLUSH PRN ×2 (13:04→21:17)
[2021-06-30] MEDS: Donepezil 10 MG Tab PO SCH (21:19)
[2021-06-30] MEDS: amLODIPine 5 MG Tab PO SCH (21:20)
[2021-07-01] MEDS: Heparin Sodium 5,000 Units/ML Vial SUBCUT SCH ×3 (05:11→21:13)
[2021-07-01 06:40] LABS: ANION GAP 10.4 mEq/L (7-13)
[2021-07-01] MEDS: Polyethylene Glycol 3350 Powder 17 GM Packet PO SCH ×2 (08:30→21:09)
[2021-07-01] MEDS: Acetaminophen 325 MG Tab PO SCH ×3 (08:31→21:12)
[2021-07-01] MEDS: Levothyroxine 112 MCG Tab PO SCH (08:31)
[2021-07-01] MEDS: oxyCODONE 5 MG Tab PO PRN (11:31)
--- NOTE | 2021-07-01 13:23 | PCM.PN ---
- General Info Date of Service: 07/01/21 Admission Dx/Problem (Free Text): Admission Diagnosis/Problem Admission Diagnosis/Problem Pain management Subjective Update: doing well today. pleasantly confused. no acute concerns. Functional Status: Reports: Pain Controlled Pain Score: 0 - Review of Systems General: Reports: No Symptoms HEENT: Reports: No Symptoms Pulmonary: Reports: No Symptoms Cardiovascular: Reports: No Symptoms Gastrointestinal: Reports: No Symptoms Genitourinary: Reports: No Symptoms Musculoskeletal: Reports: Other (Pain with movement and palpation of right arm. ROM limited) Skin: Reports: No Symptoms Neurological: Reports: Confusion Psychiatric: Reports: No Symptoms - Patient Data Vitals - Most Recent: Last Vital Signs Temp 97.6 F 07/01/21 12:00 Pulse 66 07/01/21 12:00 Resp 20 07/01/21 12:00 BP 110/60 07/01/21 12:00 Pulse Ox 100 07/01/21 12:00 Weight - Most Recent: 180 lb 6.4 oz I&O - Last 24 Hours: Intake & Output 06/30/21 07/01/21 07/01/21 22:59 06:59 14:59 Intake Total 800 480 Balance 800 480 Lab Results Last 24 Hours: Laboratory Results - last 24 hr 06/27/21 06/27/21 06/30/21 Range/Units 06:45 06:45 16:04 WBC (5.0-10.0) 10^3/uL RBC (4.2-5.4) 10^6/uL Hgb 9.6 L (12.0-16.0) g/dL Hct (37.0-47.0) % MCV (80-100) fL MCH (27.0-34.0) pg MCHC (33.0-35.0) g/dL Plt Count (150-450) 10^3/uL Neutrophils % (Manual) 61 % Band Neuts % (Manual) 3 % Lymphocytes % (Manual) 29 % Monocytes % (Manual) 6 % Eosinophils % (Manual) 0 % Basophils % (Manual) 1 % Metamyelocytes % (Man) Not Reportable RBC/WBC/PLT Morphology Abnormal (Normal) Vacuolated Neuts Seen Platelet Estimate Adequate Hypochromasia 2+ /hpf Microcytosis 1+ /hpf Smear Path Review Path rpt Sodium (136-145) mmol/L Potassium (3.5-5.1) mmol/L Chloride (98-107) mmol/L Carbon Dioxide (21-32) mmol/L Anion Gap (7-13) mEq/L BUN (7-18) mg/dL Creatinine (0.55-1.02) mg/dL Est Cr Clr Drug Dosing mL/min Estimated GFR (MDRD) Glucose (70-99) mg/dL Calcium (8.5-10.1) mg/dL 07/01/21 07/01/21 Range/Units 05:20 05:20 WBC 8.4 (5.0-10.0) 10^3/uL RBC 3.50 L (4.2-5.4) 10^6/uL Hgb 8.7 L (12.0-16.0) g/dL Hct 28.6 L (37.0-47.0) % MCV 81.7 (80-100) fL MCH 24.9 L (27.0-34.0) pg MCHC 30.4 L (33.0-35.0) g/dL Plt Count 285 (150-450) 10^3/uL Neutrophils % (Manual) % Band Neuts % (Manual) % Lymphocytes % (Manual) % Monocytes % (Manual) % Eosinophils % (Manual) % Basophils % (Manual) % Metamyelocytes % (Man) RBC/WBC/PLT Morphology (Normal) Vacuolated Neuts Platelet Estimate Hypochromasia /hpf Microcytosis /hpf Smear Path Review Sodium 138 (136-145) mmol/L Potassium 3.4 L (3.5-5.1) mmol/L Chloride 101 (98-107) mmol/L Carbon Dioxide 30 (21-32) mmol/L Anion Gap 10.4 (7-13) mEq/L BUN 30 H (7-18) mg/dL Creatinine 1.12 H (0.55-1.02) mg/dL Est Cr Clr Drug Dosing 26.93 mL/min Estimated GFR (MDRD) 46 Glucose 98 (70-99) mg/dL Calcium 8.9 (8.5-10.1) mg/dL Med Orders - Current: Current Medications Acetaminophen (Acetaminophen 325 Mg Tab) 650 mg PO TID [facility] Last Admin: 07/01/21 08:31 Dose: 650 mg Documented by: Amlodipine Besylate (Amlodipine 5 Mg Tab) 2.5 mg PO 2100 [facility] Last Admin: 06/30/21 21:20 Dose: 2.5 mg Documented by: Donepezil HCl (Donepezil 10 Mg Tab) 10 mg PO BEDTIME [facility] Last Admin: 06/30/21 21:19 Dose: 10 mg Documented by: Heparin Sodium (Porcine) (Heparin Sodium 5,000 Units/Ml Vial) 5,000 units SUBCUT Q8HR [facility] Last Admin: 07/01/21 05:11 Dose: 5,000 units Documented by: Levothyroxine Sodium (Levothyroxine 112 Mcg Tab) 112 mcg PO ACBREAKFAST [facility] Ondansetron HCl (Ondansetron 4 Mg Tab.Dis) 4 mg PO Q6H PRN PRN Reason: nausea, able to take PO Oxycodone HCl (Oxycodone 5 Mg Tab) 5 mg PO DAILY PRN PRN Reason: Pain (severe 7-10) Last Admin: 07/01/21 11:31 Dose: 5 mg Documented by: Polyethylene Glycol (Polyethylene Glycol 3350 Powder 17 Gm Packet) 17 gm PO BID [facility] Last Admin: 07/01/21 08:30 Dose: 17 gm Documented by: Sodium Chloride (Sodium Chloride 0.9% 10 Ml Syringe) 10 ml FLUSH ASDIRECTED PRN PRN Reason: Keep Vein Open Last Admin: 06/30/21 21:17 Dose: 10 ml Documented by: Discontinued Medications Amlodipine Besylate (Amlodipine 5 Mg Tab) 5 mg PO 2100 [facility] Ascorbic Acid (Ascorbic Acid 500 Mg Tab) 500 mg PO DAILY [facility] Last Admin: 06/27/21 08:20 Dose: 500 mg Documented by: Aspirin (Aspirin 81 Mg Tab.Ec) 81 mg PO DAILY [facility] Last Admin: 06/29/21 08:20 Dose: 81 mg Documented by: Cyanocobalamin (Cyanocobalamin (Vitamin B12) 1,000 Mcg/Ml Sd) 1,000 mcg IM ONETIME ONE Stop: 06/28/21 16:58 Last Admin: 06/28/21 18:13 Dose: 1,000 mcg Documented by: Docusate Sodium (Docusate Sodium 100 Mg Cap) 100 mg PO BID PRN PRN Reason: Constipation Ibuprofen (Ibuprofen 400 Mg Tab) 400 mg PO Q6H PRN PRN Reason: moderate pain Last Admin: 06/27/21 11:32 Dose: 400 mg Documented by: Iron Sucrose (Iron Sucrose Complex 100 Mg/5 Ml Sdv) 200 mg IVPUSH ONETIME ONE Stop: 06/28/21 02:53 Last Admin: 06/28/21 18:46 Dose: Not Given Documented by: Iron Sucrose (Iron Sucrose Complex 100 Mg/5 Ml Sdv) 200 mg IVPUSH ONETIME ONE Stop: 06/28/21 12:31 Last Admin: 06/28/21 15:09 Dose: 200 mg Documented by: Iron Sucrose (Iron Sucrose Complex 100 Mg/5 Ml Sdv) 200 mg IVPUSH ONETIME ONE Stop: 06/29/21 13:59 Last Admin: 06/29/21 16:42 Dose: 200 mg Documented by: Iron Sucrose (Iron Sucrose Complex 100 Mg/5 Ml Sdv) 200 mg IVPUSH ONETIME ONE Stop: 06/30/21 12:09 Last Admin: 06/30/21 12:50 Dose: 200 mg Documented by: Levothyroxine Sodium (Levothyroxine 112 Mcg Tab) 112 mcg PO DAILY [facility] Last Admin: 07/01/21 08:31 Dose: 112 mcg Documented by: Morphine Sulfate (Morphine 2 Mg/Ml Syringe) 2 mg IVPUSH ONETIME ONE Stop: 06/26/21 13:49 Last Admin: 06/26/21 14:04 Dose: 2 mg Documented by: Oxycodone HCl (Oxycodone 5 Mg Tab) 5 mg PO Q6H PRN PRN Reason: severe pain Last Admin: 06/27/21 21:06 Dose: 5 mg Documented by: Oxycodone HCl (Oxycodone 5 Mg Tab) 5 mg PO Q8H PRN PRN Reason: severe pain Last Admin: 06/29/21 08:22 Dose: 5 mg Documented by: Potassium Chloride (Potassium Chloride 10 Meq Tab.Er) 20 meq PO BIDMEALS [facility] Last Admin: 06/27/21 18:16 Dose: 20 meq Documented by: Simvastatin (Simvastatin 10 Mg Tab) 20 mg PO BEDTIME [facility] Last Admin: 06/26/21 21:33 Dose: 20 mg Documented by: Temazepam (Temazepam 15 Mg Cap) 15 mg PO BEDTIME PRN PRN Reason: Sleep Triamterene/Hydrochlorothiazide (Hydrochlorothiazide/Triamterene 25-37.5 Tab) 2 each PO DAILY [facility] Last Admin: 06/27/21 08:22 Dose: 2 each Documented by: Triamterene/Hydrochlorothiazide (Hydrochlorothiazide/Triamterene 25-37.5 Tab) 1 each PO DAILY [facility] - Exam Quality Assessment: No: Supplemental Oxygen, Urine Catheter General: Alert, Oriented (to person and place) HEENT: EOMI Neck: Supple Lungs: Clear to Auscultation, Normal Respiratory Effort Cardiovascular: Regular Rate, Regular Rhythm GI/Abdominal Exam: Soft, Non-Tender, No Distention (Female) Exam: Deferred Back Exam: Normal Inspection Extremities: No Pedal Edema, Limited Range of Motion (in RUE 2/2 pain and sling), Other (pain on palpation of RUE) Skin: Warm, Dry Neurological: No New Focal Deficit (memory deficit) Psy/Mental Status: Normal Affect, Normal Mood - Patient Data Lab Results Last 24 hrs: Laboratory Results - last 24 hr 06/27/21 06/27/21 06/30/21 Range/Units 06:45 06:45 16:04 WBC (5.0-10.0) 10^3/uL RBC (4.2-5.4) 10^6/uL Hgb 9.6 L (12.0-16.0) g/dL Hct (37.0-47.0) % MCV (80-100) fL MCH (27.0-34.0) pg MCHC (33.0-35.0) g/dL Plt Count (150-450) 10^3/uL Neutrophils % (Manual) 61 % Band Neuts % (Manual) 3 % Lymphocytes % (Manual) 29 % Monocytes % (Manual) 6 % Eosinophils % (Manual) 0 % Basophils % (Manual) 1 % Metamyelocytes % (Man) Not Reportable RBC/WBC/PLT Morphology Abnormal (Normal) Vacuolated Neuts Seen Platelet Estimate Adequate Hypochromasia 2+ /hpf Microcytosis 1+ /hpf Smear Path Review Path rpt Sodium (136-145) mmol/L Potassium (3.5-5.1) mmol/L Chloride (98-107) mmol/L Carbon Dioxide (21-32) mmol/L Anion Gap (7-13) mEq/L BUN (7-18) mg/dL Creatinine (0.55-1.02) mg/dL Est Cr Clr Drug Dosing mL/min Estimated GFR (MDRD) Glucose (70-99) mg/dL Calcium (8.5-10.1) mg/dL 07/01/21 07/01/21 Range/Units 05:20 05:20 WBC 8.4 (5.0-10.0) 10^3/uL RBC 3.50 L (4.2-5.4) 10^6/uL Hgb 8.7 L (12.0-16.0) g/dL Hct 28.6 L (37.0-47.0) % MCV 81.7 (80-100) fL MCH 24.9 L (27.0-34.0) pg MCHC 30.4 L (33.0-35.0) g/dL Plt Count 285 (150-450) 10^3/uL Neutrophils % (Manual) % Band Neuts % (Manual) % Lymphocytes % (Manual) % Monocytes % (Manual) % Eosinophils % (Manual) % Basophils % (Manual) % Metamyelocytes % (Man) RBC/WBC/PLT Morphology (Normal) Vacuolated Neuts Platelet Estimate Hypochromasia /hpf Microcytosis /hpf Smear Path Review Sodium 138 (136-145) mmol/L Potassium 3.4 L (3.5-5.1) mmol/L Chloride 101 (98-107) mmol/L Carbon Dioxide 30 (21-32) mmol/L Anion Gap 10.4 (7-13) mEq/L BUN 30 H (7-18) mg/dL Creatinine 1.12 H (0.55-1.02) mg/dL Est Cr Clr Drug Dosing 26.93 mL/min Estimated GFR (MDRD) 46 Glucose 98 (70-99) mg/dL Calcium 8.9 (8.5-10.1) mg/dL Result Diagrams: 07/01/21 05:20 07/01/21 05:20 Sepsis Event Note - Evaluation Sepsis Screening Result: No Definite Risk - Focused Exam Vital Signs: Vital Signs Temp Pulse Resp BP Pulse Ox 07/01/21 12:00 97.6 F 66 20 110/60 100 07/01/21 07:43 98.6 F 65 20 132/56 L 100 07/01/21 04:00 97.3 F 69 16 127/60 94 L - Problem List Review Problem List Initiated/Reviewed/Updated: Yes - My Orders Last 24 Hours: My Active Orders 07/02/21 05:11 CBC W/O DIFF,HEMOGRAM [HEME] AM 07/03/21 05:11 BASIC METABOLIC PANEL,BMP [CHEM] AM - Assessment Assessment:: Iman was admitted on 06/26 for right arm pain after [id number] on ice witnessed by her son. - Plan Plan:: ACTIVE PROBLEMS: acute likely blood loss anemia 2/2 recent fracture severe chronic anemia secondary to iron deficiency and CKD stage III as well as hx of gastric bypass: - last upper and lower endoscopy (11/2014) showed unremarkable site of gastric bypass surgery as well as non-constricting Schatzki's ring and diverticulosis. - no active bleeding noted - Ferritin 13, iron 41, sat % 9.6, TIBC 426 - venofer 200mg IV slow push on 06/28 and 06/29 - hgb 9.6 -> 8.7 Plan: - check hgb early am - IV venofer 200mg IV today. plan for 5 total doses. IV given poor absorption due to hx of gastric bypass. dose 4/5 today - refer back to PCP at discharge for further investigation - transfuse for hgb <7 without signs of bleeding or <8 with active bleeding. mechanical fall on ice at home, initial encounter acute Comminuted fracture of proximal humerus with impaction: - Ortho at [facility] consulted: place sling and follow up as outpatient in one week. Plan: - acetaminophen for pain - sling in place 23/02 - refer to [facility] ortho for follow up in one week post discharge. benign essential HTN: - stop HCTZ-triamterene after discussion of risk of dehydration and electrolyte imbalance from its use on 06/27 with her family. - continue Amlodipine 2.[address] its [address]. chronic conditions: - Polypharmacy. Stopped simvastatin after discussion of risks and benefits in elderly patients with dementia. - CKD stage 3. 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 DVT px: SCDs Code: DNR OT/PT following; might need temporary SNF placement. MDM/interval Hx: - pt doing well today. will receive dose 4/5 of venofer for her severe iron deficiency anemia. pleasantly confused. no pain. no acute concerns. up to chair today. medically stable for discharge when a bed is available and a safe discharge plan is in place. She can receive her last dose of venofer tomorrow morning. if she is leaving and will need to have this monitored by her PCP going forward.
[2021-07-01] MEDS ORDERED: Iron Sucrose Complex 100 MG/5 ML SDV IVPUSH ONE (14:00)
[2021-07-01] MEDS: amLODIPine 5 MG Tab PO SCH (21:10)
[2021-07-01] MEDS: Donepezil 10 MG Tab PO SCH (21:10)
[2021-07-02] MEDS: oxyCODONE 5 MG Tab PO PRN (05:33)
[2021-07-02] MEDS: Heparin Sodium 5,000 Units/ML Vial SUBCUT SCH (05:34)
[2021-07-02] MEDS ORDERED: Levothyroxine 112 MCG Tab PO SCH (06:00)
--- NOTE | 2021-07-02 06:59 | PCM.DCSUM1 ---
Discharge Summary - Hospital Course Brief History: see below Diagnosis: Stroke: No - Discharge Data Discharge Date: 07/02/21 Discharge Disposition: DC/Tfer W/I Hosp To Swing 61 Condition: Good - Referral to Home Health Primary Care Physician: PCP None - Patient Summary/Data Consults: Consultations 06/26/21 16:13 OT Evaluation and Treatment [CONS] Routine PT Evaluation and Treatment [CONS] Routine Hospital Course: Ayanna is a leida 89 year old woman with PMH significant for hypothyroidism, HTN, HLD and alzheimers disease who presented to the ED after slipping on the ice getting out of her sons truck. While in the ED she was found to have a right humerus fx. ER provider consulted orthopedic MD at [facility] - conservative management was suggested with a sling. sling was placed and pt was admitted to the hospital for pain control. labs also revealed acute on chronic anemia and severe iron deficiency anemia with ferritin 13 and Iron 41. Pt was started on venofer and received 4 doses while inpatient. She is started on PO iron at discharge. PT/OT recommended swing bed placement to regain strength and mobility and to have time for family to evaluate extend of memory issues. Pt was thought to be medically stable and a bed was available on the morning of 07/02/21. All questions and concerns were addressed at bedside prior to ayanna leaving the hospital. - Patient Instructions Diet: Regular Diet as Tolerated Activity: As Tolerated Driving: Do Not Drive Showering/Bathing: May Shower - Discharge Plan *PRESCRIPTION DRUG MONITORING PROGRAM REVIEWED*: Not Applicable *COPY OF PRESCRIPTION DRUG MONITORING REPORT IN PATIENT [place]: Not Applicable Prescriptions/Med Rec: amLODIPine [Norvasc] 2.5 mg PO 2100 30 Days #30 tablet Home Medications: Home Meds Calcium Carbonate/Vitamin D3 [Oyster Shell 500-Vit D3 200 Tb] 2 tab PO BEDTIME 01/19/20 [History] Donepezil [Aricept] 10 mg PO BEDTIME 01/19/20 [History] Levothyroxine 112 mcg PO DAILY 01/19/20 [History] Acetaminophen [Tylenol Extra Strength] 1,000 mg PO Q12H #60 tablet 01/20/20 [Rx] Cyanocobalamin (Vitamin B-12) [Cyanocobalamin Injection] 1,000 mcg IJ .MONTHLY 06/27/21 [History] amLODIPine [Norvasc] 2.5 mg PO 2100 30 Days #30 tablet 07/02/21 [Rx] Oxygen Therapy Mode: Room Air Patient Handouts: Humerus Fracture Treated With Immobilization, Urxx-bo-Glbo, Understanding Your Risk for Falls Referrals: Sushila Mcconnell NP [Ordering Only Provider] - - Discharge Summary/Plan Comment DC Time >30 min.: Yes Total # of Minutes for Discharge Time: 45 - General Info Date of Service: 07/02/21 Admission Dx/Problem (Free Text: Admission Diagnosis/Problem Admission Diagnosis/Problem Pain management Subjective Update: doing well today. no acute questions or concerns. Functional Status: Reports: Pain Controlled - Review of Systems General: Reports: No Symptoms HEENT: Reports: No Symptoms, Glasses Pulmonary: Reports: No Symptoms Cardiovascular: Reports: No Symptoms Gastrointestinal: Reports: No Symptoms Genitourinary: Reports: No Symptoms Musculoskeletal: Reports: Arm Pain (right arm pain with movement or palpation. ) Skin: Reports: No Symptoms Neurological: Reports: No Symptoms Psychiatric: Reports: No Symptoms - Patient Data Vitals - Most Recent: Last Vital Signs Temp 98.8 F 07/02/21 04:00 Pulse 69 07/02/21 04:00 Resp 18 07/02/21 04:00 BP 124/52 L 07/02/21 04:00 Pulse Ox 96 07/02/21 04:00 Weight - Most Recent: 180 lb 6.4 oz I&O - Last 24 hours: Intake & Output 07/01/21 07/01/21 07/02/21 14:59 22:59 06:59 Intake Total 480 400 Balance 480 400 Lab Results - Last 24 hrs: Laboratory Results - last 24 hr 06/27/21 06/27/21 07/02/21 Range/Units 06:45 06:45 06:05 WBC 9.2 (5.0-10.0) 10^3/uL RBC 3.80 L (4.2-5.4) 10^6/uL Hgb 9.4 L (12.0-16.0) g/dL Hct 31.1 L (37.0-47.0) % MCV 81.8 (80-100) fL MCH 24.7 L (27.0-34.0) pg MCHC 30.2 L (33.0-35.0) g/dL Plt Count 332 (150-450) 10^3/uL Neutrophils % (Manual) 61 % Band Neuts % (Manual) 3 % Lymphocytes % (Manual) 29 % Monocytes % (Manual) 6 % Eosinophils % (Manual) 0 % Basophils % (Manual) 1 % Metamyelocytes % (Man) Not Reportable RBC/WBC/PLT Morphology Abnormal (Normal) Vacuolated Neuts Seen Platelet Estimate Adequate Hypochromasia 2+ /hpf Microcytosis 1+ /hpf Smear Path Review Path rpt Med Orders - Current: Current Medications Acetaminophen (Acetaminophen 325 Mg Tab) 650 mg PO TID [facility] Last Admin: 07/01/21 21:12 Dose: 650 mg Documented by: Amlodipine Besylate (Amlodipine 5 Mg Tab) 2.5 mg PO 2100 [facility] Last Admin: 07/01/21 21:10 Dose: 2.5 mg Documented by: Donepezil HCl (Donepezil 10 Mg Tab) 10 mg PO BEDTIME [facility] Last Admin: 07/01/21 21:10 Dose: 10 mg Documented by: Heparin Sodium (Porcine) (Heparin Sodium 5,000 Units/Ml Vial) 5,000 units SUBCUT Q8HR [facility] Last Admin: 07/02/21 05:34 Dose: 5,000 units Documented by: Iron Sucrose (Iron Sucrose Complex 100 Mg/5 Ml Sdv) 200 mg IVPUSH ONETIME ONE Stop: 07/02/21 10:01 Levothyroxine Sodium (Levothyroxine 112 Mcg Tab) 112 mcg PO ACBREAKFAST [facility] Last Admin: 07/02/21 05:33 Dose: 112 mcg Documented by: Ondansetron HCl (Ondansetron 4 Mg Tab.Dis) 4 mg PO Q6H PRN PRN Reason: nausea, able to take PO Oxycodone HCl (Oxycodone 5 Mg Tab) 5 mg PO DAILY PRN PRN Reason: Pain (severe 7-10) Last Admin: 07/02/21 05:33 Dose: 5 mg Documented by: Polyethylene Glycol (Polyethylene Glycol 3350 Powder 17 Gm Packet) 17 gm PO BID [facility] Last Admin: 07/01/21 21:09 Dose: 17 gm Documented by: Sodium Chloride (Sodium Chloride 0.9% 10 Ml Syringe) 10 ml FLUSH ASDIRECTED PRN PRN Reason: Keep Vein Open Last Admin: 06/30/21 21:17 Dose: 10 ml Documented by: Discontinued Medications Amlodipine Besylate (Amlodipine 5 Mg Tab) 5 mg PO 2100 [facility] Ascorbic Acid (Ascorbic Acid 500 Mg Tab) 500 mg PO DAILY [facility] Last Admin: 06/27/21 08:20 Dose: 500 mg Documented by: Aspirin (Aspirin 81 Mg Tab.Ec) 81 mg PO DAILY [facility] Last Admin: 06/29/21 08:20 Dose: 81 mg Documented by: Cyanocobalamin (Cyanocobalamin (Vitamin B12) 1,000 Mcg/Ml Sdv) 1,000 mcg IM ONETIME ONE Stop: 06/28/21 16:58 Last Admin: 06/28/21 18:13 Dose: 1,000 mcg Documented by: Docusate Sodium (Docusate Sodium 100 Mg Cap) 100 mg PO BID PRN PRN Reason: Constipation Ibuprofen (Ibuprofen 400 Mg Tab) 400 mg PO Q6H PRN PRN Reason: moderate pain Last Admin: 06/27/21 11:32 Dose: 400 mg Documented by: Iron Sucrose (Iron Sucrose Complex 100 Mg/5 Ml Sdv) 200 mg IVPUSH ONETIME ONE Stop: 06/28/21 02:53 Last Admin: 06/28/21 18:46 Dose: Not Given Documented by: Iron Sucrose (Iron Sucrose Complex 100 Mg/5 Ml Sdv) 200 mg IVPUSH ONETIME ONE Stop: 06/28/21 12:31 Last Admin: 06/28/21 15:09 Dose: 200 mg Documented by: Iron Sucrose (Iron Sucrose Complex 100 Mg/5 Ml Sdv) 200 mg IVPUSH ONETIME ONE Stop: 06/29/21 13:59 Last Admin: 06/29/21 16:42 Dose: 200 mg Documented by: Iron Sucrose (Iron Sucrose Complex 100 Mg/5 Ml Sdv) 200 mg IVPUSH ONETIME ONE Stop: 06/30/21 12:09 Last Admin: 06/30/21 12:50 Dose: 200 mg Documented by: Iron Sucrose (Iron Sucrose Complex 100 Mg/5 Ml Sdv) 200 mg IVPUSH ONETIME ONE Stop: 07/01/21 14:01 Last Admin: 07/01/21 15:18 Dose: 200 mg Documented by: Levothyroxine Sodium (Levothyroxine 112 Mcg Tab) 112 mcg PO DAILY [facility] Last Admin: 07/01/21 08:31 Dose: 112 mcg Documented by: Morphine Sulfate (Morphine 2 Mg/Ml Syringe) 2 mg IVPUSH ONETIME ONE Stop: 06/26/21 13:49 Last Admin: 06/26/21 14:04 Dose: 2 mg Documented by: Oxycodone HCl (Oxycodone 5 Mg Tab) 5 mg PO Q6H PRN PRN Reason: severe pain Last Admin: 06/27/21 21:06 Dose: 5 mg Documented by: Oxycodone HCl (Oxycodone 5 Mg Tab) 5 mg PO Q8H PRN PRN Reason: severe pain Last Admin: 06/29/21 08:22 Dose: 5 mg Documented by: Potassium Chloride (Potassium Chloride 10 Meq Tab.Er) 20 meq PO BIDMEALS [facility] Last Admin: 06/27/21 18:16 Dose: 20 meq Documented by: Simvastatin (Simvastatin 10 Mg Tab) 20 mg PO BEDTIME [facility] Last Admin: 06/26/21 21:33 Dose: 20 mg Documented by: Temazepam (Temazepam 15 Mg Cap) 15 mg PO BEDTIME PRN PRN Reason: Sleep Triamterene/Hydrochlorothiazide (Hydrochlorothiazide/Triamterene 25-37.5 Tab) 2 each PO DAILY [facility] Last Admin: 06/27/21 08:22 Dose: 2 each Documented by: Triamterene/Hydrochlorothiazide (Hydrochlorothiazide/Triamterene 25-37.5 Tab) 1 each PO DAILY [facility] - Exam Quality Assessment: Reports: DVT Prophylaxis. Denies: Supplemental Oxygen General: Reports: Alert, Oriented (to person and place only), Cooperative, No Acute Distress HEENT: Reports: EOMI Neck: Reports: Supple Lungs: Reports: Clear to Auscultation, Normal Respiratory Effort. Denies: Decreased Breath Sounds, Rales, Rhonchi, Rub, Wheezing GI/Abdominal Exam: Soft, Non-Tender, No Distention (Female) Exam: Deferred Rectal (Female) Exam: Deferred Back Exam: Reports: Normal Inspection, Full Range of Motion Extremities: Other (right arm in sling. mild pain with movement and palpation. ROM limited by pain and sling) Skin: Reports: Warm, Dry, Intact Neurological: Reports: No New Focal Deficit Psy/Mental Status: Reports: Normal Affect, Normal Mood *Q Meaningful Use (DIS) - VTE *Q VTE Mechanical Contraindications *Q: Tx/Proc Refused byPt VTE Pharmacological Contraindications *Q: Tx/Proc Refused by Pt VTE Anticoagulation Contraindications: Tx/proc Refused by PT - Stroke *Q Aspirin Contraindications Stroke *Q: Patient Refusal Anticoagulation Contraindications Stroke *Q: TX/PROC Refused by PT Antithrombotic Contraindications Stroke *Q: TX/PROC Refused by PT Statin Contraindications Stroke *Q: TX/PROC Refused by PT Rehabilitation Assessment Contraindication *Q: Tx/proc refused by pt - AMI *Q Aspirin Contraindications AMI *Q: TX/PROC Refused by PT Statin Contraindications AMI *Q: TX/Proc Refused by PT
[2021-07-02 07:34] VITALS: BP 109/75; PULSE 83
[2021-07-02] MEDS ORDERED: Iron Sucrose Complex 100 MG/5 ML SDV IVPUSH ONE (10:00)
== END 2021-07-02 07:30 | DRG 563 ==
LOC: DL.ED 13:08 → DL.MS 14:50 → DL.ED 15:01 → OBSVTOIN 06-28 08:59
PROVIDERS: ADMIT Internal Medicine; ATTEND Hospitalist
DX: S42.354A Nondisplaced comminuted fracture of shaft of humerus, right arm, initial encounter for closed fracture (principal); D62 Acute posthemorrhagic anemia; I12.9 Hypertensive chronic kidney disease with stage 1 through stage 4 chronic kidney disease, or unspecified chronic kidney disease; E78.5 Hyperlipidemia, unspecified; D63.1 Anemia in chronic kidney disease; E78.00 Pure hypercholesterolemia, unspecified; M81.0 Age-related osteoporosis without current pathological fracture; G30.9 Alzheimer's disease, unspecified; N18.9 Chronic kidney disease, unspecified; Z20.822 Contact with and (suspected) exposure to COVID-19; F02.80 Dementia in other diseases classified elsewhere, unspecified severity, without behavioral disturbance, psychotic disturbance, mood disturbance, and anxiety; M19.90 Unspecified osteoarthritis, unspecified site; E03.9 Hypothyroidism, unspecified; N18.30 Chronic kidney disease, stage 3 unspecified; R07.9 Chest pain, unspecified; E53.8 Deficiency of other specified B group vitamins; Z66 Do not resuscitate; H35.30 Unspecified macular degeneration; Z88.2 Allergy status to sulfonamides; Z86.718 Personal history of other venous thrombosis and embolism; Z88.8 Allergy status to other drugs, medicaments and biological substances; Z79.01 Long term (current) use of anticoagulants; Z95.5 Presence of coronary angioplasty implant and graft; Z85.828 Personal history of other malignant neoplasm of skin; Z79.82 Long term (current) use of aspirin; Z79.890 Hormone replacement therapy; Z79.899 Other long term (current) drug therapy; Z90.49 Acquired absence of other specified parts of digestive tract; Z28.82 Immunization not carried out because of caregiver refusal; W00.0XXA Fall on same level due to ice and snow, initial encounter
CPT/HCPCS: 0240U; 36415; 73030-RT; 80048; 80069; 82272; 82607; 82728; 82746; 83540; 83550; 83735; 84443; 85018; 85025; 85027; 93005; 96372; 96374; 97116-GP; 97161-GP; 97165-GO; 97530-GO; 99284-25; A9270-GY; G0378; J1644; J1756; J2270; J3420